=== PATIENT | male | born 1945 | race Caucasian/White ===

== ENCOUNTER 2016-04-19 12:32 | Emergency (ER) | payer MEDICARE ==
[2016-04-19] MEDS ORDERED: Aspirin Low Dose CHEW TAB* 81 MG PO ONE (12:50)
--- NOTE | 2016-04-19 13:22 | RAD ---
INDICATION: Defibrillator firing COMPARISON: None TECHNIQUE: An AP portable view obtained at 1310 hours is submitted. FINDINGS: Bones/Soft Tissues: There are no acute bony findings. There is a cardiac pacemaker/defibrillator Cardiomediastinal: The correct silhouette is mildly prominent. There is no convincing evidence of vascular congestion. Lungs: There are no infiltrates. Pleura: There are no pleural effusions. Other: None IMPRESSION: CARDIAC PACEMAKER/DEFIBRILLATOR. MILDLY ENLARGED CARDIAC SILHOUETTE. NO ACTIVE DISEASE.
[2016-04-19 13:47] LABS: Hematocrit 45 % (42-52); Hemoglobin 15.2 g/dl (14.0-18.0); Mean Corpuscular HGB Conc 33 g/dl (31-36); Mean Corpuscular Hemoglobin 32 pg (27-31); Mean Corpuscular Volume 95 fL (80-94); Mean Platelet Volume 8 um3 (7.4-10.4); Red Cell Distribution Width 13 % (10.5-15)
[2016-04-19 13:58] LABS: Albumin 3.7 g/dL (3.2-5.2); BUN/Creatinine Ratio 11.9 (8-20); Calcium 9.2 mg/dL (8.6-10.3); EGFR African American 67.2 (>60); EGFR Non-African American 52.2 (>60); Globulin 3.1 g/dL (2-4); Magnesium 1.7 mg/dL (1.9-2.7); Potassium 3.9 mmol/L (3.5-5.0); Total Protein 6.8 g/dL (6.4-8.9)
[2016-04-19 14:21] LABS: Troponin I 0.11 ng/mL (<0.04)
[2016-04-19 16:14] VITALS: BP 110/79
--- NOTE | 2016-04-19 19:22 | ED ---
Gee Zavala Adam, scribed for Manoj Alvarado MD on 04/19/16 at 1505 . Palpitations / Dysrhythmia - HPI Summary HPI Summary: Pt is a 70 year old male whose ICD fired 3 times this morning. It first fired at 10:45 as the pt was walking into his house and then it fired 2 more times. He did not feel it coming beforehand and it did not cause him to fall down. Pt has the ICD for A Fib and he states that it has only fired one other time in the past. PMHx includes HTN, DM-II, and CHF. - History of Current Complaint Chief Complaint: EDChestPainROMI Time Seen by Provider: 04/19/16 13:10 Hx Obtained From: Patient Onset/Duration: Sudden Onset, Lasting Hours, Resolved Severity Initially: Moderate Severity Currently: None Character: Irregular - ICD fired 3x Aggravating: Nothing Alleviating: Nothing Associated Signs & Symptoms: Negative - Allergy/Home Medications Allergies/Adverse Reactions: Allergies Allergy/AdvReac Type Severity Reaction Status Date / Time Digoxin Allergy Unknown Verified 04/21/15 14:01 Reaction Details Penicillins Allergy Unknown Verified 04/21/15 14:00 Reaction Details Home Medications: Home Medications Cholecalciferol [Vitamin D] 1,000 unit PO DAILY 04/19/16 [History Confirmed ] Ketoconazole 2 % CREAM (NF) [Nizoral 2% CREAM (NF)] 1 applic TOPICAL BID PRN [History Confirmed 04/19/16] Lactobacillus [Probiotic] 1 cap PO DAILY 04/19/16 [History Confirmed 04/19/16] Lisinopril TAB* [Prinivil TAB*] 20 mg PO DAILY 04/19/16 [History Confirmed 04/19] PMH/Surg Hx/FS Hx/Imm Hx Endocrine/Hematology History: Reports: Hx Diabetes Cardiovascular History: Reports: Hx Congestive Heart Failure, Hx Hypertension, Hx Pacemaker/ICD - Surgical History Surgery Procedure, Year, and Place: PYLORIC STENOSIS Infectious Disease History: No Infectious Disease History: Denies: Traveled Outside the [place] in Last 30 Days - Family History Known Family History: Positive: Unknown - Noncontributory - Social History Occupation: Retired Lives: With Family - Alcohol Use: None Hx Substance Use: No Substance Use Type: Reports: None Smoking Status (MU): Unknown if Ever Smoked Review of Systems Negative: Fever Positive: Palpitations - ICD fired 3x Negative: Shortness Of Breath All Other Systems Reviewed And Are Negative: Yes Physical Exam Triage Information Reviewed: Yes Vital Signs On Initial Exam: Initial Vitals Temp Pulse Resp BP Pulse Ox 98.9 F 68 18 122/86 99 04/19/16 12:33 04/19/16 12:33 04/19/16 12:33 04/19/16 12:33 04/19/16 12:33 Vital Signs Reviewed: Yes Appearance: Positive: Well-Appearing, No Pain Distress Skin: Positive: Warm, Skin Color Reflects Adequate Perfusion, Dry Head/Face: Positive: Normal Head/Face Inspection Eyes: Positive: Normal ENT: Positive: Normal ENT inspection Neck: Positive: Supple, Nontender Respiratory/Lung Sounds: Positive: Clear to Auscultation, Breath Sounds Present Cardiovascular: Positive: RRR Abdomen Description: Positive: Nontender, Soft Bowel Sounds: Positive: Present Musculoskeletal: Positive: Normal Neurological: Positive: Normal Psychiatric: Positive: Normal, Affect/Mood Appropriate - Dennison Coma Scale Coma Scale Total: 15 Diagnostics - Vital Signs Vital Signs Temp Pulse Resp BP Pulse Ox 04/19/16 12:33 98.9 F 68 18 122/86 99 - Laboratory Lab Results: Lab Results 04/19/16 04/19/16 04/19/16 Range/Units 13:30 13:30 13:30 WBC 8.0 (3.5-10.8) 10^3/ul RBC 4.80 (4.0-5.4) 10^6/ul Hgb 15.2 (14.0-18.0) g/dl Hct 45 (42-52) % MCV 95 H (80-94) fL MCH 32 H (27-31) pg MCHC 33 (31-36) g/dl RDW 13 (10.5-15) % Plt Count 166 (150-450) 10^3/ul MPV 8 (7.4-10.4) um3 Neut % (Auto) 72.9 (38-83) % Lymph % (Auto) 11.4 L (25-47) % [place] % (Auto) 8.6 (1-9) % Eos % (Auto) 5.5 (0-6) % Baso % (Auto) 1.6 (0-2) % Absolute Neuts (auto) 5.8 (1.5-7.7) 10^3/ul Absolute Lymphs (auto) 0.9 L (1.0-4.8) 10^3/ul Absolute Monos (auto) 0.7 (0-0.8) 10^3/ul Absolute Eos (auto) 0.4 (0-0.6) 10^3/ul Absolute Basos (auto) 0.1 (0-0.2) 10^3/ul Absolute Nucleated RBC 0 10^3/ul Nucleated RBC % 0 INR (Anticoag Therapy) 1.41 H (0.89-1.11) Sodium 136 (133-145) mmol/L Potassium 3.9 (3.5-5.0) mmol/L Chloride 106 (101-111) mmol/L Carbon Dioxide 25 (22-32) mmol/L Anion Gap 5 (2-11) mmol/L BUN 16 (6-24) mg/dL Creatinine 1.35 H (0.67-1.17) mg/dL Est GFR ( Amer) 67.2 (>60) Est GFR (Non-Af Amer) 52.2 (>60) BUN/Creatinine Ratio 11.9 (8-20) Glucose 128 H (70-100) mg/dL Lactic Acid (0.5-2.0) mmol/L Calcium 9.2 (8.6-10.3) mg/dL Magnesium 1.7 L (1.9-2.7) mg/dL Total Bilirubin 1.00 (0.2-1.0) mg/dL AST 15 (13-39) U/L ALT 10 (7-52) U/L Alkaline Phosphatase 75 (34-104) U/L Troponin I 0.11 H* (<0.04) ng/mL Total Protein 6.8 (6.4-8.9) g/dL Albumin 3.7 (3.2-5.2) g/dL Globulin 3.1 (2-4) g/dL Albumin/Globulin Ratio 1.2 (1-3) 04/19/ Range/Units 13:30 WBC (3.5-10.8) 10^3/ul RBC (4.0-5.4) 10^6/ul Hgb (14.0-18.0) g/dl Hct (42-52) % MCV (80-94) fL MCH (27-31) pg MCHC (31-36) g/dl RDW (10.5-15) % Plt Count (150-450) 10^3/ul MPV (7.4-10.4) um3 Neut % (Auto) (38-83) % Lymph % (Auto) (25-47) % [place] % (Auto) (1-9) % Eos % (Auto) (0-6) % Baso % (Auto) (0-2) % Absolute Neuts (auto) (1.5-7.7) 10^3/ul Absolute Lymphs (auto) (1.0-4.8) 10^3/ul Absolute Monos (auto) (0-0.8) 10^3/ul Absolute Eos (auto) (0-0.6) 10^3/ul Absolute Basos (auto) (0-0.2) 10^3/ul Absolute Nucleated RBC 10^3/ul Nucleated RBC % INR (Anticoag Therapy) (0.89-1.11) Sodium (133-145) mmol/L Potassium (3.5-5.0) mmol/L Chloride (101-111) mmol/L Carbon Dioxide (22-32) mmol/L Anion Gap (2-11) mmol/L BUN (6-24) mg/dL Creatinine (0.67-1.17) mg/dL Est GFR ( Amer) (>60) Est GFR (Non-Af Amer) (>60) BUN/Creatinine Ratio (8-20) Glucose (70-100) mg/dL Lactic Acid 1.1 (0.5-2.0) mmol/L Calcium (8.6-10.3) mg/dL Magnesium (1.9-2.7) mg/dL Total Bilirubin (0.2-1.0) mg/dL AST (13-39) U/L ALT (7-52) U/L Alkaline Phosphatase (34-104) U/L Troponin I (<0.04) ng/mL Total Protein (6.4-8.9) g/dL Albumin (3.2-5.2) g/dL Globulin (2-4) g/dL Albumin/Globulin Ratio (1-3) Result Diagrams: 04/19/16 13:30 04/19/16 13:30 Lab Statement: Any lab studies that have been ordered have been reviewed, and results considered in the medical decision making process. - Radiology CXR Radiology Interpretation Completed By: Radiologist - IMPRESSION: CARDIAC PACEMAKER/DEFIBRILLATOR. MILDLY ENLARGED CARDIAC SILHOUETTE. NO ACTIVE DISEASE. - EKG 12:53 Cardiac Rate: NL - 64 BPM EKG Rhythm: Sinus Rhythm - Additional Comments Diagnostic Additional Comments: Troponin I - 0.11 Course/Dx - Course Course Of Treatment: Mr. Burger presented with his ICD having fired 3 times today. His labs were OK and the ICD was interrogated and some of the settings changed. Dr. Pringle was involved in the decision making. - Diagnoses Provider Diagnoses: A-fib Discharge - Discharge Plan Condition: Stable Disposition: HOME Patient Education Materials: Atrial Fibrillation (ED) Referrals: Bob Jessica MD [Medical Doctor] - Additional Instructions: Follow up with Dr. Jessica. The documentation as recorded by the Gee herron Adam accurately reflects the service I personally performed and the decisions made by me, Manoj Alvarado MD.
--- NOTE | 2016-06-07 10:58 | ED ---
Urbano Zavala Matthew, scribed for Kaylee Maravilla MD on 04/19/16 at 1255 . Progress - Progress Note Progress Note: A 70 y/o male presents to the ED after his defibrillator has gone off 3 times today. He went outside to feed the birds and after walking up a set of stairs his defibrillator fired for the first time. Since then it has gone off 2 additional [address] He [address] Dr[address] Jessica who recommend he presented to the ED. He has a medtronic defibrillator. EKG being done. The patient was moved to room 7 to be seen by a provider. Course/Dx - Diagnoses Provider Diagnoses: A-fib The documentation as recorded by the scribeUrbano Matthew accurately reflects the service I personally performed and the decisions made by me, Kaylee Maravilla MD.
== END 2016-04-19 16:14 | disposition home or self-care (01) ==
LOC: ED 12:32
DX: I48.91 Unspecified atrial fibrillation (principal); Z95.810 Presence of automatic (implantable) cardiac defibrillator; I10 Essential (primary) hypertension; E11.8 Type 2 diabetes mellitus with unspecified complications; I50.9 Heart failure, unspecified; Z88.0 Allergy status to penicillin
CPT/HCPCS: 36415; 71010; 80053; 83605; 83735; 84484; 85025; 85610; 93005; 99283

== ENCOUNTER 2016-09-22 18:52 | Observation (INO) | payer MEDICARE ==
[2016-09-22 20:08] LABS: Hematocrit 48 % (42-52); Hemoglobin 15.9 g/dl (14.0-18.0); Mean Corpuscular HGB Conc 33 g/dl (31-36); Mean Corpuscular Hemoglobin 32 pg (27-31); Mean Corpuscular Volume 95 fL (80-94); Mean Platelet Volume 8 um3 (7.4-10.4); Red Blood Count 5.02 10^6/ul (4.0-5.4); Red Cell Distribution Width 14 % (10.5-15)
[2016-09-22] MEDS ORDERED: Ondansetron INJ* 2 MG/ML VIAL IV PRN (20:13)
[2016-09-22] MEDS ORDERED: NS 0.9% 1000 ML* 1,000 ML IV SCH (20:15)
--- NOTE | 2016-09-22 20:16 | ED ---
Joshua Zavala Claudia, scribed for Sky Cowart MD on 09/22/16 at 1948 . Neurological HPI - HPI Summary HPI Summary: 70 year old male presents to [facility] ED with chief complaint of weakness and ARREAGA. Pt is referred from Dr. Rojas's office today after receiving MRI results displaying a bleed. According to pt Dr. Rojas has spoken to a Neurosurgeon at [facility] today. IMPRESSION: THERE IS A INTRAPARENCHYMAL HEMATOMA IN THE LEFT FRONTAL LOBE JUST SUPERIOR TO THE LEFT LATERAL VENTRICLE MEASURING 19 X 14 MM. NO MIDLINE SHIFT IS NOTED. NO DEFINITE INTRAVENTRICULAR HEMORRHAGE IS NOTED CURRENTLY. Pt notes sudden onset of Sx about 1 week ago. Pt denies any progression of Sx and notes that have remained about the same. Pt states difficulty ambulating since onset of Sx. Pt family note that the pt was golfing the day before Sx occurred. Pt denies any recent mechanical falls. Pt alsop notes that she has been taking pyridoxine for years due to Dx of AFIB, family notes recent cardiac oblation to correct his AFIB. - History of Current Complaint Chief Complaint: EDGeneral Stated Complaint: NEEDS TO GET OFF MEDS Time Seen by Provider: 09/22/16 19:37 Hx Obtained From: Patient Onset/Duration: Sudden Onset, Started weeks ago Pain Intensity: 2 Pain Scale Used: 0-10 Numeric Character: Weak, Other: - ARREAGA Associated Signs and Symptoms: Positive: Headache, Weakness - Allergy/Home Medications Allergies/Adverse Reactions: Allergies Allergy/AdvReac Type Severity Reaction Status Date / Time Digoxin Allergy Unknown Verified 04/21/15 14:01 Reaction Details Penicillins Allergy Unknown Verified 04/21/15 14:00 Reaction Details Home Medications: Home Medications Eplerenone 25 mg PO DAILY 09/22/16 [History Confirmed 09/22/16] PMH/Surg Hx/FS Hx/Imm Hx Previously Healthy: Yes Endocrine/Hematology History: Reports: Hx Diabetes Cardiovascular History: Reports: Hx Congestive Heart Failure, Hx Hypertension, Hx Pacemaker/ICD - Surgical History Surgery Procedure, Year, and Place: PYLORIC STENOSIS Infectious Disease History: Denies: Traveled Outside the [place] in Last 30 Days - Family History Known Family History: Positive: Unknown - Noncontributory - Social History Occupation: Retired Lives: With Family Alcohol Use: None Hx Substance Use: No Substance Use Type: Reports: None Smoking Status (MU): Unknown if Ever Smoked Review of Systems Constitutional: Negative Negative: Fever Eyes: Negative ENT: Negative Cardiovascular: Negative Respiratory: Negative Gastrointestinal: Negative Genitourinary: Negative Musculoskeletal: Negative Skin: Negative Positive: Headache, Weakness Psychological: Normal All Other Systems Reviewed And Are Negative: Yes Physical Exam Triage Information Reviewed: Yes Vital Signs On Initial Exam: Initial Vitals Temp Pulse Resp BP Pulse Ox 98.6 F 67 18 137/100 96 09/22/16 19:20 09/22/16 19:20 09/22/16 19:20 09/22/16 19:20 09/22/16 19:20 Vital Signs Reviewed: Yes Appearance: Positive: Well-Appearing, No Pain Distress Skin: Positive: Warm Head/Face: Positive: Normal Head/Face Inspection Eyes: Positive: EOMI, JESIKA ENT: Positive: Hearing grossly normal Neck: Positive: Nontender Respiratory/Lung Sounds: Positive: Breath Sounds Present Cardiovascular: Positive: RRR Abdomen Description: Positive: Nontender, Soft Bowel Sounds: Positive: Present Musculoskeletal: Positive: Normal, Strength/ROM Intact Neurological: Positive: Alert, Oriented to Person Place, Time Diagnostics - Vital Signs Vital Signs Temp Pulse Resp BP Pulse Ox 09/22/16 19:20 98.6 F 67 18 137/100 96 - Laboratory Lab Results: Lab Results 09/22/16 Range/Units 19:59 WBC 9.0 (3.5-10.8) 10^3/ul RBC 5.02 (4.0-5.4) 10^6/ul Hgb 15.9 (14.0-18.0) g/dl Hct 48 (42-52) % MCV 95 H (80-94) fL MCH 32 H (27-31) pg MCHC 33 (31-36) g/dl RDW 14 (10.5-15) % Plt Count 181 (150-450) 10^3/ul MPV 8 (7.4-10.4) um3 Neut % (Auto) 59.1 (38-83) % Lymph % (Auto) 18.7 L (25-47) % [place] % (Auto) 11.0 H (1-9) % Eos % (Auto) 9.2 H (0-6) % Baso % (Auto) 2.0 (0-2) % Absolute Neuts (auto) 5.3 (1.5-7.7) 10^3/ul Absolute Lymphs (auto) 1.7 (1.0-4.8) 10^3/ul Absolute Monos (auto) 1.0 H (0-0.8) 10^3/ul Absolute Eos (auto) 0.8 H (0-0.6) 10^3/ul Absolute Basos (auto) 0.2 (0-0.2) 10^3/ul Absolute Nucleated RBC 0 10^3/ul Nucleated RBC % 0 Result Diagrams: 09/22/16 19:59 09/22/16 19:59 Lab Statement: Any lab studies that have been ordered have been reviewed, and results considered in the medical decision making process. - EKG 2000 Cardiac Rate: NL EKG Rhythm: Sinus Rhythm - 60 beats/min occassional Atrial Premature Complex NIH Scale - NIH Scale Level of Consciousness: Alert/Keenly Responsive Ask Patient the Month and His/Her Age: Both Correct Ask Pt to Open/Close Eyes and Boat Hoist Operator Helper/Release Non-Paretic Hand: Both Correctly Best Gaze (Only Horizontal Eye Movement): Normal Visual Field Testing: No Visual Loss Facial Paresis-Pt to Smile & Close Eyes or Grimace Symmetry: Normal/Symmetrical Motor Function - Right Arm: No Drift-Holds 10 Seconds Motor Function - Left Arm: No Drift-Holds 10 Seconds Motor Function - Right Leg: No Drift-Holds 10 Seconds Motor Function - Left Leg: No Drift-Holds 10 Seconds Limb Ataxia-Must be out of Proportion to Weakness Present: Absent Sensory (Use Pinprick to Test Arms/Legs/Trunk/Face): Normal Best Language (Describe Picture, Name Items): No Aphasia Dysarthria (Read Several Words): Normal Extinction and Inattention: No Abnormality Total Score: 0 Re-Evaluation - Re-Evaluation First Eval Comment: case d/w dr galeano nsg, d/w hospitalist Course/Dx - Course Assessment/Plan: MDM: 70 year old male presents to [facility] ED after a positive Brain CT. Pt is referred to ED from Dr. Rojas. I have discussed patient care with Dr. Galeano and Dr. Le. Mimi Gonzalez will admit the pt. - Diagnoses Provider Diagnoses: Cerebral hemorrhage - Physician Notifications Discussed Care Of Patient With: Dr. Galeano and Dr. Le whom will admit to [facility] Time Discussed With Above Provider: 19:55 Discharge - Discharge Plan Condition: Fair Disposition: ADMITTED TO [facility] The documentation as recorded by the Joshua herron Claudia accurately reflects the service I personally performed and the decisions made by me, Sky Cowart MD.
[2016-09-22 20:23] LABS: Albumin 3.9 g/dL (3.2-5.2); BUN/Creatinine Ratio 13.2 (8-20); Calcium 9.4 mg/dL (8.6-10.3); EGFR African American 70.8 (>60); EGFR Non-African American 55.1 (>60); Globulin 3.4 g/dL (2-4); Potassium 3.8 mmol/L (3.5-5.0); Total Bilirubin 0.7 mg/dL (0.2-1.0); Total Protein 7.3 g/dL (6.4-8.9)
--- NOTE | 2016-09-22 20:26 | HP ---
H&P (Free Text) History and Physical: PCP: Debbie Rojas MD Date/Time of Evaluation: 09/22/2016 193 CC: intercranial hemorrhage HPI: Mr Burger is a 70YO male HX AFIB on dabigatran who is quite a poor, indistinct historian. He has difficulty relating symptom onset, but ultimately settles on 7-10days ago noticing his legs and body to feel heavy with tender feet, increased urinary frequency, gait instability, mental fogginess, & increased frequency of mild 2/10 dull diffuse headache. He denies visual changes , syncope, cough, congestion, chest pain, SOB, N/V, change in bowels, open wound , recent fall/injury, or other issues. He saw his PCP who ordered labs and a CT brain revealing a L interparenchymal cerebral hemorrhage for which referral to ED was made. At this time, Mr Burger is sitting up in his ED bed appearing comfortable and without distress. He denies focal W/N/T, change in speech/ swallow, vision, or other problem. PMedHx AFIB on dabigatran HX non-ischemic cardiomyopathy, resolved HTN HLD hypothyroidism GERD gout erectile dysfunction Ambulatory Orders Nursing to reconcile. Colchicine* [Colcrys*] 0.6 mg PO DAILY PRN 04/21/15 Dabigatran CAP(NF) [Pradaxa CAP(NF)] 150 mg PO BID 04/21/15 Levothyroxine TAB* [Synthroid TAB*] 100 mcg PO DAILY 04/21/15 Ranitidine TAB (NF) [Zantac TAB (NF)] 150 mg PO BID 04/21/15 Sildenafil Citrate [Viagra] 50 - 100 mg PO BEDTIME PRN 04/21/15 Simvastatin (NF) [Zocor (NF)] 80 mg PO BEDTIME 04/21/15 Sotalol TAB* [Betapace TAB*] 160 mg PO DAILY 04/21/15 Spironolactone TAB* [Aldactone TAB*] 25 mg PO DAILY 04/21/15 Cholecalciferol [Vitamin D] 1,000 unit PO DAILY 04/19/16 Ketoconazole 2 % CREAM (NF) [Nizoral 2% CREAM (NF)] 1 applic TOPICAL BID PRN Lactobacillus [Probiotic] 1 cap PO DAILY 04/19/16 Lisinopril TAB* [Prinivil TAB*] 20 mg PO DAILY 04/19/16 Allergies Digoxin Allergy (Verified 04/21/15 14:01) Unknown Reaction Details Penicillins Allergy (Verified 04/21/15 14:00) Unknown Reaction Details PSurgHx AICD placement & battery change pinning R knee FX recent cardiac ablation SocHx: quit smoking 30years ago, no significant alcohol history, denies recreational drugs; lives with his ; retired from work in a [employer] plant; full code status FamHx: positive for HTN, HLD ROS: as above, otherwise reviewed and all were negative Constitutional: NAD, normally developed, well-nourished elderly white male vitals: Vital Signs Temp 37.0 C 09/22/16 19:20 Pulse 67 09/22/16 19:20 Resp 18 09/22/16 19:20 BP 137/100 09/22/16 19:20 Pulse Ox 96 09/22/16 19:20 HEENM: atraumatic; sclera/conjunctiva: non-icteric/clear; hearing: clinically intact; oropharynx: clear, mucosa moist Neck: soft tissue: non-tender; thyroid: normal Pulmonary: clear to auscultation bilaterally, good aeration, no accessory muscle use CV: RR/RR, normal S1S2, no carotid bruit, no jugular venous distention, 2+ B DP/ PT, no edema Abdominal: soft, non-distended, non-tender, no rebound/guarding/rigidity, normoactive bowel sounds, no hepatosplenomegaly or masses, no costovertebral angle tenderness Musculoskeletal: general: grossly intact, no overt deformity or tenderness Integumental: normal appearance and texture of exposed skin Neurological cranial nerves III/IV/: symmetric light reflex, EOMI/PERRLA V: intact facial sensation & mastication VII: intact facial symmetry & eye clench VIII: hearing clinically intact IX/X: symmetric palatal motion, no dysarthria XII: midline tongue protrusion, normal voice articulation motor LUE: 4+/5 proximally, distally, & fast food crew member strength RUE: 4+/5 proximally, distally, & fast food crew member strength LLE: 4+/5 proximally & distally RLE: 4+/5 proximally & distally coordination finger/nose: heal/toro: dysdiadochokinesia: sensory crude touch: intact globally Psychiatric orientation: AA&O to PPS affect: calm mood: cooperative eye contact: good content: reliable memory: intact responses: lacking in details; uncertain if he has AFIB, etc insight: fair Testing: Lab Results 09/22/16 09/22/16 Range/Units 19:59 19:59 WBC 9.0 (3.5-10.8) 10^3/ul RBC 5.02 (4.0-5.4) 10^6/ul Hgb 15.9 (14.0-18.0) g/dl Hct 48 (42-52) % MCV 95 H (80-94) fL MCH 32 H (27-31) pg MCHC 33 (31-36) g/dl RDW 14 (10.5-15) % Plt Count 181 (150-450) 10^3/ul MPV 8 (7.4-10.4) um3 Neut % (Auto) 59.1 (38-83) % Lymph % (Auto) 18.7 L (25-47) % [place] % (Auto) 11.0 H (1-9) % Eos % (Auto) 9.2 H (0-6) % Baso % (Auto) 2.0 (0-2) % Absolute Neuts (auto) 5.3 (1.5-7.7) 10^3/ul Absolute Lymphs (auto) 1.7 (1.0-4.8) 10^3/ul Absolute Monos (auto) 1.0 H (0-0.8) 10^3/ul Absolute Eos (auto) 0.8 H (0-0.6) 10^3/ul Absolute Basos (auto) 0.2 (0-0.2) 10^3/ul Absolute Nucleated RBC 0 10^3/ul Nucleated RBC % 0 INR (Anticoag Therapy) 1.15 H (0.89-1.11) ECG, personally reviewed: NSR rate 60, no ischemia, occasional PACs CT brain WO (09/22/2016 outpatient), personally reviewed: IMPRESSION: THERE IS A INTRAPARENCHYMAL HEMATOMA IN THE LEFT FRONTAL LOBE JUST SUPERIOR TO THE LEFT LATERAL VENTRICLE MEASURING 19 X 14 MM. NO MIDLINE SHIFT IS NOTED. NO DEFINITE INTRAVENTRICULAR HEMORRHAGE IS NOTED CURRENTLY. AGE RELATED ATROPHY. Impression: 70M presenting with spontaneous L interparechemal cranial hemorrhage on dabigatron for AFIB DIAGNOSIS & PLAN Primary L interparechemal cranial hemorrhage on dabigatron for AFIB : minimal deficit : D/C dabigatran : ICU monitoring : neurochecks : no indication for reversal of dabigatran 2nd duration of symptom stability : maintain systolic <130 : PT/OT evaluations : NPO until bedside swallow passed : supplemental oxygen : case discussed with Dr Joey Galeano, neurosurgery, will follow, agrees with above plan : supportive care AFIB : no longer a candidate for anticoagulation 2nd above : currently NSR s/p ablation : rate/rhythm control Secondary AFIB : D/C dabigatran as above : continue sotalol & eplerenone HX non-ischemic cardiomyopathy, resolved : no acute issues HTN : continue lisinopril HLD : continue simvastatin hypothyroidism : continue levothyroxine GERD : continue ranitidine gout : no acute issues Admission Rational: observation for non-traumatic intracranial hemorrhage on dabigatran DVTp: SCDs, no anticoagulation 2nd above Code Status: full HCP:
[2016-09-22] MEDS ORDERED: Melatonin (NF) 3 MG TAB PO PRN (21:00)
[2016-09-22] MEDS ORDERED: hydrALAZINE IV* 20 MG/ML VIAL IV PRN (21:17)
[2016-09-22] MEDS: Atorvastatin* 40 MG TAB PO SCH (22:12)
[2016-09-22] MEDS: Docusate CAP* 100 MG PO SCH (22:12)
--- NOTE | 2016-09-22 22:26 | CONSULT ---
Neurological HPI - HPI Summary HPI Summary: 70 year old male presents to [facility] with chief complaint of headache and difficulty of walking for 10 days. Pt notes sudden onset of Sx about 1 week to 10 days ago. ARREAGA is rated about 2-7 in a scale of 10, located on the top of head , Pt denies any progression of Sx and notes that have remained about the same. Pt states difficulty ambulating since onset of Sx. Pt family note that the pt was golfing the day before Sx occurred. Pt denies any recent mechanical falls. Pt also notes that she has been taking Pradaxa for years due to Dx of AFIB, family notes recent cardiac oblation to correct his AFIB. Pt is referred from Dr. Rojas's office today after receiving CT results displaying a bleed. CT IMPRESSION: THERE IS A INTRAPARENCHYMAL HEMATOMA IN THE LEFT FRONTAL LOBE JUST SUPERIOR TO THE LEFT LATERAL VENTRICLE MEASURING 19 X 14 MM. NO MIDLINE SHIFT IS NOTED. NO DEFINITE INTRAVENTRICULAR HEMORRHAGE IS NOTED CURRENTLY. - History of Current Complaint Hx Obtained From: Patient Onset/Duration: Sudden Onset, Started weeks ago Pain Intensity: 2 Pain Scale Used: 0-10 Numeric Character: Weak, Other: - ARREAGA Associated Signs and Symptoms: Positive: Headache, Weakness - Additional Pertinent History Oxygen Devices Used Prior to Hospitalization: None - Allergy/Home Medications Allergies/Adverse Reactions: Allergies Allergy/AdvReac Type Severity Reaction Status Date / Time Digoxin Allergy Unknown Verified 04/21/15 14:01 Reaction Details Penicillins Allergy Unknown Verified 04/21/15 14:00 Reaction Details Home Medications: Home Medications Eplerenone 25 mg PO DAILY 09/22/16 [History Confirmed 09/22/16] Home Medications: Home Medications Medication Instructions Recorded Confirmed Type Dabigatran CAP(NF) [Pradaxa 150 mg PO BID 04/21/15 09/22/16 History CAP(NF)] Levothyroxine TAB* [Synthroid TAB*] 100 mcg PO DAILY 04/21/15 09/22/16 History Ranitidine TAB (NF) [Zantac TAB 150 mg PO BID 04/21/15 09/22/16 History (NF)] Simvastatin (NF) [Zocor (NF)] 80 mg PO BEDTIME 04/21/15 09/22/16 History Sotalol TAB* [Betapace TAB*] 120 mg PO DAILY 04/21/15 09/22/16 History Lactobacillus [Probiotic] 1 cap PO DAILY 04/19/16 09/22/16 History Lisinopril TAB* [Prinivil TAB*] 40 mg PO DAILY 04/19/16 09/22/16 History Eplerenone 25 mg PO DAILY 09/22/16 09/22/16 History Allergies: Allergies Allergy/AdvReac Type Severity Reaction Status Date / Time Digoxin Allergy Unknown Verified 04/21/15 14:01 Reaction Details Penicillins Allergy Unknown Verified 04/21/15 14:00 Reaction Details Vital Signs Vital Signs: Vital Signs 09/22/16 09/22/16 09/22/16 20:28 20:30 21:00 Temperature 99.1 F Pulse Rate 63 58 60 Respiratory 18 Rate Blood Pressure 127/87 127/87 148/93 (mmHg) O2 Sat by Pulse 98 95 97 Oximetry 09/22/16 09/22/16 09/22/16 21:23 21:26 21:30 Temperature 99.1 F Pulse Rate 62 62 60 Respiratory 13 13 15 Rate Blood Pressure 136/88 136/88 144/90 (mmHg) O2 Sat by Pulse 98 99 98 Oximetry 09/22/16 09/22/16 21:45 22:00 Temperature Pulse Rate 59 60 Respiratory 18 19 Rate Blood Pressure 136/90 140/87 (mmHg) O2 Sat by Pulse 96 96 Oximetry Assessment and Plan - Plan Surgical Plan of Care: Transfer to ICU Temp Pulse Resp BP Pulse Ox 99.1 F 60 18 140/87 96 09/22/16 21:23 09/22/16 22:00 09/22/16 22:00 09/22/16 22:00 09/22/16 22:00 General Appearance: Well appearing, Normal development HEENT: Normocephalic, atraumatic, ears and nose without masses or lesions Neck: Symmetric without masses or tracheal deviation Chest: Normal respiratory effort Cardiovascular: Good color, warmth and capillary refill in extremities Skin: No visible rashes, lesions or ulcers Neurological/Psychiatric: Good fine motor coordination, Sensation intact to light touch distally, Cranial nerves II-IX grossly intact, Appropriate judgement and insight, Oriented to time, place, and person, Normal mood and affect Lab Results - Lab Results Lab Results: Abnormal Lab Results 09/22/16 09/22/16 09/22/16 19:59 19:59 19:59 WBC 9.0 RBC 5.02 Hgb 15.9 Hct 48 MCV 95 H MCH 32 H MCHC 33 RDW 14 Plt Count 181 MPV 8 Neut % (Auto) 59.1 Lymph % (Auto) 18.7 L [place] % (Auto) 11.0 H Eos % (Auto) 9.2 H Baso % (Auto) 2.0 Absolute Neuts (auto) 5.3 Absolute Lymphs (auto) 1.7 Absolute Monos (auto) 1.0 H Absolute Eos (auto) 0.8 H Absolute Basos (auto) 0.2 Absolute Nucleated RBC 0 Nucleated RBC % 0 INR (Anticoag Therapy) 1.15 H Sodium Potassium Chloride Carbon Dioxide Anion Gap BUN Creatinine Est GFR ( Amer) Est GFR (Non-Af Amer) BUN/Creatinine Ratio Glucose Lactic Acid 0.8 Calcium Total Bilirubin AST ALT Alkaline Phosphatase Total Protein Albumin Globulin Albumin/Globulin Ratio 09/22/16 19:59 WBC RBC Hgb Hct MCV MCH MCHC RDW Plt Count MPV Neut % (Auto) Lymph % (Auto) [place] % (Auto) Eos % (Auto) Baso % (Auto) Absolute Neuts (auto) Absolute Lymphs (auto) Absolute Monos (auto) Absolute Eos (auto) Absolute Basos (auto) Absolute Nucleated RBC Nucleated RBC % INR (Anticoag Therapy) Sodium 136 Potassium 3.8 Chloride 103 Carbon Dioxide 25 Anion Gap 8 BUN 17 Creatinine 1.29 H Est GFR ( Amer) 70.8 Est GFR (Non-Af Amer) 55.1 BUN/Creatinine Ratio 13.2 Glucose 114 H Lactic Acid Calcium 9.4 Total Bilirubin 0.70 AST 22 ALT 15 Alkaline Phosphatase 77 Total Protein 7.3 Albumin 3.9 Globulin 3.4 Albumin/Globulin Ratio 1.1 Results/Investigations Major Jaundice Risk Factors: None Minor Jaundice Risk Factors: None Radiology Results: CT showed left frontal area close to ventricle area has 19x 14 mm ICH without mass effect or midline shift, no IVH Impression and Recommendations - Impression and Recommendations Impression and Recommendations: 70M, on Pradexa for A Fib, found Headache and difficulty to walk for 10 days, no other complaints or deficits,CT showed left frontal area close to ventricle area has 19x 14 mm ICH without mass effect or midline shift, no IVH Plan: ICU admission with neuro check q1h Stop Pradexa and reverse it if possible Control SBP less 140 mmhg Keppra 750 mg bid avoid fluid overload CT scan tomorrow Discussed with patient and primary team, please call for any questions
[2016-09-23] MEDS: Omeprazole CAP* 20 MG PO SCH (05:55)
[2016-09-23] MEDS: Levothyroxine TAB* 100 MCG TAB PO SCH (05:55)
[2016-09-23 06:04] LABS: Hematocrit 44 % (42-52); Hemoglobin 14.7 g/dl (14.0-18.0); Mean Corpuscular HGB Conc 33 g/dl (31-36); Mean Corpuscular Hemoglobin 32 pg (27-31); Mean Corpuscular Volume 95 fL (80-94); Mean Platelet Volume 8 um3 (7.4-10.4); Red Blood Count 4.68 10^6/ul (4.0-5.4); Red Cell Distribution Width 14 % (10.5-15); White Blood Count 7.7 10^3/ul (3.5-10.8)
[2016-09-23 06:21] LABS: BUN/Creatinine Ratio 12.2 (8-20); EGFR African American 80.9 (>60); EGFR Non-African American 62.9 (>60); Potassium 3.8 mmol/L (3.5-5.0)
[2016-09-23] MEDS: Acetaminophen TAB* 325 MG PO PRN ×3 (06:47→18:46)
[2016-09-23] MEDS ORDERED: IDARUCIZUMAB* 2.5 GM/50 ML VIAL IV ONE (07:47)
--- NOTE | 2016-09-23 07:52 | PN ---
Subjective - Subjective Reason for Note: Progress Note History: I diagnosed this intracranial hemorrhage yesterday and we admitted him for observation as he was anticoagulated with dabigatran. He states he is hungry this morning and has a slight headache. Otherwise, he feels no new symptoms or deficits. He has no nausea, vomiting. His vision is unchanged. He has no focal weakness or loss of sensation. He states he is having no problems with word finding/expressing himself. Active Problems: Active Problems Anticoagulant adverse reaction (Acute) T45.515A Headache (Acute) R51 Left-sided intracerebral hemorrhage (Acute) I61.2 Urinary frequency (Acute) R35.0 BPH (benign prostatic hyperplasia) (Chronic) N40.0 Cardiomyopathy (Chronic) I42.9 Chronic kidney disease, stage 3 (Chronic) N18.3 DNR (do not resuscitate) (Chronic) Diabetic retinopathy (Chronic) E11.319 Essential hypertension (Chronic) I10 GERD (gastroesophageal reflux disease) (Chronic) K21.9 History of atrial fibrillation (Chronic) Z86.79 History of cardiac radiofrequency ablation (Chronic) Z98.890 History of gout (Chronic) Z87.39 Hypercholesterolemia (Chronic) E78.00 ICD (implantable cardioverter-defibrillator) in place (Chronic) Z95.810 Obesity (BMI 30.0-34.9) (Chronic) E66.9 Primary hypothyroidism (Chronic) E03.9 Type 2 diabetes mellitus (Chronic) Current Medications: Current Medications Acetaminophen (Tylenol Tab*) 650 mg PO Q6H PRN PRN Reason: FEVER/PAIN Last Admin: 09/23/16 06:47 Dose: 650 mg Atorvastatin Calcium (Lipitor*) 40 mg PO BEDTIME RIZWAN Last Admin: 09/22/16 22:12 Dose: 40 mg Docusate Sodium (Colace Cap*) 200 mg PO BID RIZWAN Last Admin: 09/22/16 22:12 Dose: 200 mg Eplerenone (Inspra (Nf)) 25 mg PO DAILY [facility] Famotidine (Pepcid Tab*) 20 mg PO BID [facility] PRN Reason: Protocol Hydralazine HCl (Apresoline Iv*) 10 mg IV Q4H PRN PRN Reason: systolic >135 Sodium Chloride (Ns 0.9% 1000 Ml*) 1,000 mls @ 75 mls/hr IV PER RATE [facility] Last Admin: 09/22/16 22:02 Dose: 75 mls/hr Levetiracetam (Keppra Tab*) 750 mg PO BID [facility] Levothyroxine Sodium (Synthroid Tab*) 100 mcg PO DAILY@0600 [facility] Last Admin: 09/23/16 05:55 Dose: 100 mcg Lisinopril (Prinivil Tab*) 40 mg PO DAILY [facility] Melatonin (Melatonin (Nf)) 3 mg PO BEDTIME PRN; Protocol PRN Reason: Sleep Omeprazole (Prilosec Cap*) 20 mg PO DAILY@0600 [facility] Last Admin: 09/23/16 05:55 Dose: 20 mg Ondansetron HCl (Zofran Inj*) 4 mg IV Q6H PRN PRN Reason: NAUSEA Sotalol HCl (Betapace Tab*) 120 mg PO DAILY [facility] Home Medications: Home Medications Medication Instructions Recorded Confirmed Type Dabigatran CAP(NF) [Pradaxa 150 mg PO BID 04/21/15 09/22/16 History CAP(NF)] Levothyroxine TAB* [Synthroid TAB*] 100 mcg PO DAILY 04/21/15 09/22/16 History Ranitidine TAB (NF) [Zantac TAB 150 mg PO BID 04/21/15 09/22/16 History (NF)] Simvastatin (NF) [Zocor (NF)] 80 mg PO BEDTIME 04/21/15 09/22/16 History Sotalol TAB* [Betapace TAB*] 120 mg PO DAILY 04/21/15 09/22/16 History Lactobacillus [Probiotic] 1 cap PO DAILY 04/19/16 09/22/16 History Lisinopril TAB* [Prinivil TAB*] 40 mg PO DAILY 04/19/16 09/22/16 History Eplerenone 25 mg PO DAILY 09/22/16 09/22/16 History Allergies: Allergies Allergy/AdvReac Type Severity Reaction Status Date / Time Digoxin Allergy Unknown Verified 04/21/15 14:01 Reaction Details Penicillins Allergy Unknown Verified 04/21/15 14:00 Reaction Details Objective - Vital Signs Vital Signs: Vital Signs 09/22/16 09/22/16 09/22/16 20:28 20:30 21:00 Temperature 99.1 F Pulse Rate 63 58 60 Respiratory 18 Rate Blood Pressure 127/87 127/87 148/93 (mmHg) O2 Sat by Pulse 98 95 97 Oximetry 09/22/16 09/22/16 09/22/16 21:23 21:26 21:30 Temperature 99.1 F Pulse Rate 62 62 60 Respiratory 13 13 15 Rate Blood Pressure 136/88 136/88 144/90 (mmHg) O2 Sat by Pulse 98 99 98 Oximetry 09/22/16 09/22/16 09/22/16 21:45 22:00 22:15 Temperature Pulse Rate 59 60 57 Respiratory 18 19 16 Rate Blood Pressure 136/90 140/87 145/88 (mmHg) O2 Sat by Pulse 96 96 97 Oximetry 09/22/16 09/22/16 09/22/16 22:30 22:45 23:00 Temperature Pulse Rate 59 60 60 Respiratory 16 18 18 Rate Blood Pressure 131/89 129/84 127/78 (mmHg) O2 Sat by Pulse 98 98 97 Oximetry 09/22/16 09/22/16 09/22/16 23:15 23:30 23:45 Temperature Pulse Rate 63 62 68 Respiratory 15 15 15 Rate Blood Pressure 128/80 130/78 132/78 (mmHg) O2 Sat by Pulse 98 96 97 Oximetry 09/23/16 09/23/16 09/23/16 00:00 00:01 00:07 Temperature 98.6 F Pulse Rate 64 64 49 Respiratory 16 17 19 Rate Blood Pressure 153/85 (mmHg) O2 Sat by Pulse 96 97 95 Oximetry 09/23/16 09/23/16 09/23/16 00:30 00:33 01:00 Temperature Pulse Rate 59 60 Respiratory 15 15 Rate Blood Pressure 126/81 111/74 (mmHg) O2 Sat by Pulse 96 95 Oximetry 09/23/16 09/23/16 09/23/16 01:30 02:00 02:30 Temperature Pulse Rate 58 61 60 Respiratory 15 13 15 Rate Blood Pressure 126/66 119/76 132/65 (mmHg) O2 Sat by Pulse 95 96 95 Oximetry 09/23/16 09/23/16 09/23/16 03:00 03:16 03:30 Temperature Pulse Rate 59 59 59 Respiratory 10 13 17 Rate Blood Pressure 130/77 122/68 (mmHg) O2 Sat by Pulse 96 96 94 Oximetry 09/23/16 09/23/16 09/23/16 03:40 04:00 04:04 Temperature 98.4 F Pulse Rate 60 64 Respiratory 16 17 Rate Blood Pressure 119/72 (mmHg) O2 Sat by Pulse 94 96 Oximetry 09/23/16 09/23/16 09/23/16 04:30 04:58 05:00 Temperature Pulse Rate 59 59 Respiratory 15 15 16 Rate Blood Pressure 103/60 101/65 (mmHg) O2 Sat by Pulse 93 94 Oximetry 09/23/16 09/23/16 09/23/16 05:30 05:56 06:00 Temperature Pulse Rate 59 61 Respiratory 16 15 16 Rate Blood Pressure 111/62 (mmHg) O2 Sat by Pulse 94 97 Oximetry 09/23/16 09/23/16 09/23/16 06:01 06:05 06:30 Temperature Pulse Rate 61 64 Respiratory 19 16 15 Rate Blood Pressure 133/86 140/83 (mmHg) O2 Sat by Pulse 98 96 Oximetry 09/23/16 09/23/16 09/23/16 07:00 07:19 07:20 Temperature Pulse Rate 63 60 Respiratory 17 13 16 Rate Blood Pressure 136/85 135/84 (mmHg) O2 Sat by Pulse 96 97 Oximetry 09/23/16 07:30 Temperature Pulse Rate 64 Respiratory 14 Rate Blood Pressure 147/87 (mmHg) O2 Sat by Pulse 97 Oximetry - Intake and Output Intake and Output: Intake & Output 09/20/16 09/21/16 09/22/16 09/23/16 11:59 11:59 11:59 11:59 Intake Total 556 Output Total 200 Balance 356 Weight 236 lb 15.951 oz Intake: IV Fluids 556 NS (0.9%) 556 Output: Urine 200 Other: Estimated Void Medium # Voids 1 ADLs: Meal Record Start: 09/22/16 21: 02 Freq: 09,13,18 Status: Active Created 09/22/16 21:02 System (Rec: 09/22/16 21:02 System [id number]) Intake and Output Start: 09/22/16 19: 26 Freq: Status: Active Created 09/22/16 19:26 System (Rec: 09/22/16 19:26 System [id number]) Intake and Output Start: 09/22/16 21: 02 Freq: 06,14,22 Status: Active Created 09/22/16 21:02 System (Rec: 09/22/16 21:02 System [id number]) Document 09/23/16 00:06 [id number] (Rec: 09/23/16 00:06 [id number] [id number]) Document 09/23/16 02:06 [id number] (Rec: 09/23/16 02:08 [id number] [id number]) Document 09/23/16 06:00 [id number] (Rec: 09/23/16 06:01 [id number] [id number]) - Physical Exam General Physical Exam Comment: Warm and well perfused. Alert, fully oriented, conversational. He is able to get out of bed and walk independently. He has no dysphasia. General: No Cyanosis, No Anemia, No Jaundice, No Clubbing Skin: Normal: Rash Lungs and Chest: Yes: Chest Expansion Full, Chest Expansion Symetrica, Percussion Note Resonant, Vessicular Breath Sounds. No: Crackles, Wheezes Heart Rate and Rhythm: Regular JVP: Not Elevated Additional Cardiovascular: Yes: Normal Heart Sounds, Pedal Edema - trace. No: Heart Murmur Abdominal Exam: Yes: Soft, Bowel Sounds Present. No: Distention, Abdominal Tenderness, Guarding - Extremities Cranial Nerves II-XII Intact: Yes Limbs: Normal Power, Normal Tone, Normal Coordination, Abnormal Gait - unsteady , but walking independently - Neuro Orientation: A/O x3 Psychiatric: Normal Speech: Normal Results - Results Lab Results: Laboratory Results - last 24 hr 09/23/16 09/23/16 05:53 05:53 WBC 7.7 RBC 4.68 Hgb 14.7 Hct 44 MCV 95 H MCH 32 H MCHC 33 RDW 14 Plt Count 155 MPV 8 Sodium 135 Potassium 3.8 Chloride 105 Carbon Dioxide 25 Anion Gap 5 BUN 14 Creatinine 1.15 Est GFR ( Amer) 80.9 Est GFR (Non-Af Amer) 62.9 BUN/Creatinine Ratio 12.2 Glucose 93 Calcium 9.0 Radiology Results: Patient Name: MICHELL EDEN Medical Record#: [id number] Ordering Physician: Kane Rojas MD Acct.#: [id number] : 1945 Age: 70 Sex: M Location: IMAGING Exam Date: 09/22/16 ADM Status: REG REF Order Information: CT BRAIN WO Accession Number: [id number] CPT: 24545 Indication: Headache. CT of the brain was performed without IV contrast. No prior study is available for comparison. Ventricular structures are midline. No midline shift is noted. There is a intraparenchymal hematoma involving the left frontal lobe white matter. This measures approximately 19 x 14 mm. Mild ventriculomegaly is noted. Prominent extra-axial. No intraventricular hemorrhage is noted at the current time. Mastoid air cells and paranasal sinuses demonstrates chronic sinusitis of the ethmoid air cells and maxillary sinuses. No prior study is available for comparison. IMPRESSION: THERE IS A INTRAPARENCHYMAL HEMATOMA IN THE LEFT FRONTAL LOBE JUST SUPERIOR TO THE LEFT LATERAL VENTRICLE MEASURING 19 X 14 MM. NO MIDLINE SHIFT IS NOTED. NO DEFINITE INTRAVENTRICULAR HEMORRHAGE IS NOTED CURRENTLY. AGE RELATED ATROPHY. <Electronically signed by Milady Echevarria MD in [place]> 09/22/16 1606 Dictated By: Milady Echevarria MD Dictated Date/Time: 09/22/16 1606 Transcribed Date/Time: 09/22/16 1604 Copy to: CC:Kaen Rojas MD Imaging - [facility] Imaging - [place] [facility] [address] [place] [address] ph ([phone]) ph ([phone]) ph ([phone]) 1 of 1 EKG Report: Sinus rhythm 60 OH 158 QTc 477 QRSD 110 QRS axis 39. PACs. LVH Assessment - Problem List Assessment: Patient Problems Anticoagulant adverse reaction (Acute) Headache (Acute) Left-sided intracerebral hemorrhage (Acute) Urinary frequency (Acute) BPH (benign prostatic hyperplasia) (Chronic) Cardiomyopathy (Chronic) Chronic kidney disease, stage 3 (Chronic) DNR (do not resuscitate) (Chronic) Diabetic retinopathy (Chronic) Essential hypertension (Chronic) GERD (gastroesophageal reflux disease) (Chronic) History of atrial fibrillation (Chronic) History of cardiac radiofrequency ablation (Chronic) History of gout (Chronic) Hypercholesterolemia (Chronic) ICD (implantable cardioverter-defibrillator) in place (Chronic) Obesity (BMI 30.0-34.9) (Chronic) Primary hypothyroidism (Chronic) Type 2 diabetes mellitus (Chronic) Plan: Anticoagulant adverse reaction (Acute) He takes dabigatran for history of atrial fibrillation. This has a half life of around 12 - 17 hours. It takes between 3 - 5 half lives to return to baseline coagulation. I will therefore reverse this with praxbind. I have discussed the adverse effects (headache, hypokalemia, allergy), with the patient. He is in sinus rhythm - he is unaware of any recent atrial fibrillation - hence I think there is less risk of an embolic stroke from discontinuation of the anticoagulation Headache (Acute) This comes and goes - none yesterday Left-sided intracerebral hemorrhage (Acute) There is a risk it might hemorrhage into the lateral ventricle. Hence we are keeping his BP under control. I will discuss with the neurosurgeon if there is anything we can do about edema Urinary frequency (Acute) This has improved - there was no evidence of a UTI BPH (benign prostatic hyperplasia) (Chronic) The likely cause of his urinary frequency History of cardiac radiofrequency ablation (Chronic) - he had radiofrequency ablation on 08/11/2016 owing to activation of his ICD by atrial fibrillation. He is unaware of further episodes of atrial fibrillation. He has taken pradaxa for years. Cardiomyopathy (Chronic) This is non-ischemic - has LVH and diastolic dysfunction. His local dragline operator is Dr. Bob Jessica Chronic kidney disease, stage 3 (Chronic) no exacerbation DNR (do not resuscitate) (Chronic) We had a long discussion about this. He is clear that he doesn't want to be rescuscitated, particularly if there is no hope for functional recovery. He understands his risk of a major intracerebral hemorrhage into the lateral ventricle. He wants to be DNR. I note that he has an ICD. I discussed this with him, he doesn't want this disconnected, but he just doesn't want a code/intubation. Diabetic retinopathy (Chronic) ongoing Essential hypertension (Chronic) We are keeping his BP < 140 systolic GERD (gastroesophageal reflux disease) (Chronic) no symptoms History of atrial fibrillation (Chronic) sinus rhythm thus far History of gout (Chronic) Hypercholesterolemia (Chronic) continue current Rx ICD (implantable cardioverter-defibrillator) in place (Chronic) Obesity (BMI 30.0-34.9) (Chronic) ongoing Primary hypothyroidism (Chronic) continue current Rx Type 2 diabetes mellitus (Chronic) well controlled - last A1c 5.8% - diet and exercise, no medications. I demonstrated the images of the CT to the patient. He understands exactly about the intracerebral hemorrhage. I have asked him to discuss with the neurosurgeon the likelihood of worsening of the bleed. He agrees with the current management plan.
[2016-09-23 08:07] LABS: Urine Bacteria Absent (Absent); Urine Bilirubin Negative (Negative); Urine Glucose Negative (Negative); Urine Nitrite Negative (Negative)
[2016-09-23] MEDS: Sotalol TAB* 80 MG PO SCH (08:12)
[2016-09-23] MEDS: levETIRAcetam TAB* 500 MG PO SCH ×2 (08:12→20:38)
[2016-09-23] MEDS: Lisinopril TAB* 10 MG PO SCH (08:12)
[2016-09-23] MEDS: Docusate CAP* 100 MG PO SCH ×2 (08:17→20:39)
[2016-09-23] MEDS: CMCS - Epleronone (NF) 25 MG TAB PO SCH (08:17)
[2016-09-23] MEDS: Famotidine TAB* 20 MG PO SCH ×2 (08:17→20:39)
--- NOTE | 2016-09-23 10:04 | PN ---
Progress Note - Progress Note Date of Service: 09/23/16 Note: Pt doing well overnight mild headache controlled by Tylenol, ambulating, no LOC , seizure, nausea vomiting, weakness Vital Signs Temp 97.8 F 09/23/16 07:49 Pulse 66 09/23/16 09:00 Resp 17 09/23/16 09:00 BP 120/72 09/23/16 09:00 Pulse Ox 97 09/23/16 09:00 Intake & Output 09/22/16 09/23/16 09/23/16 19:59 07:59 19:59 Intake Total 556 827 Output Total 200 Balance 356 827 Weight 236 lb 15.951 oz Intake: IV Fluids 556 163 NS (0.9%) 556 163 Medicated IV 104 Praxbind 104 Oral 560 Output: Urine 200 Other: Estimated Void Medium # Voids 1 AAOx 3 PERRLA EOMI FS TML Abnormal Lab Results 09/22/16 09/22/16 09/22/16 19:59 19:59 19:59 WBC 9.0 RBC 5.02 Hgb 15.9 Hct 48 MCV 95 H MCH 32 H MCHC 33 RDW 14 Plt Count 181 MPV 8 Neut % (Auto) 59.1 Lymph % (Auto) 18.7 L [place] % (Auto) 11.0 H Eos % (Auto) 9.2 H Baso % (Auto) 2.0 Absolute Neuts (auto) 5.3 Absolute Lymphs (auto) 1.7 Absolute Monos (auto) 1.0 H Absolute Eos (auto) 0.8 H Absolute Basos (auto) 0.2 Absolute Nucleated RBC 0 Nucleated RBC % 0 INR (Anticoag Therapy) 1.15 H Sodium Potassium Chloride Carbon Dioxide Anion Gap BUN Creatinine Est GFR ( Amer) Est GFR (Non-Af Amer) BUN/Creatinine Ratio Glucose Lactic Acid 0.8 Calcium Total Bilirubin AST ALT Alkaline Phosphatase Total Protein Albumin Globulin Albumin/Globulin Ratio Urine Color Urine Appearance Urine pH Ur Specific [place] Urine Protein Urine Ketones Urine Blood Urine Nitrate Urine Bilirubin Urine Urobilinogen Ur Leukocyte Esterase Urine WBC (Auto) Urine RBC (Auto) Ur Squamous Epith Cells Urine Bacteria Urine Glucose 09/22/16 09/23/16 09/23/16 19:59 05:53 05:53 WBC 7.7 RBC 4.68 Hgb 14.7 Hct 44 MCV 95 H MCH 32 H MCHC 33 RDW 14 Plt Count 155 MPV 8 Neut % (Auto) Lymph % (Auto) [place] % (Auto) Eos % (Auto) Baso % (Auto) Absolute Neuts (auto) Absolute Lymphs (auto) Absolute Monos (auto) Absolute Eos (auto) Absolute Basos (auto) Absolute Nucleated RBC Nucleated RBC % INR (Anticoag Therapy) Sodium 136 135 Potassium 3.8 3.8 Chloride 103 105 Carbon Dioxide 25 25 Anion Gap 8 5 BUN 17 14 Creatinine 1.29 H 1.15 Est GFR ( Amer) 70.8 80.9 Est GFR (Non-Af Amer) 55.1 62.9 BUN/Creatinine Ratio 13.2 12.2 Glucose 114 H 93 Lactic Acid Calcium 9.4 9.0 Total Bilirubin 0.70 AST 22 ALT 15 Alkaline Phosphatase 77 Total Protein 7.3 Albumin 3.9 Globulin 3.4 Albumin/Globulin Ratio 1.1 Urine Color Urine Appearance Urine pH Ur Specific [place] Urine Protein Urine Ketones Urine Blood Urine Nitrate Urine Bilirubin Urine Urobilinogen Ur Leukocyte Esterase Urine WBC (Auto) Urine RBC (Auto) Ur Squamous Epith Cells Urine Bacteria Urine Glucose 09/23/16 07:45 WBC RBC Hgb Hct MCV MCH MCHC RDW Plt Count MPV Neut % (Auto) Lymph % (Auto) [place] % (Auto) Eos % (Auto) Baso % (Auto) Absolute Neuts (auto) Absolute Lymphs (auto) Absolute Monos (auto) Absolute Eos (auto) Absolute Basos (auto) Absolute Nucleated RBC Nucleated RBC % INR (Anticoag Therapy) Sodium Potassium Chloride Carbon Dioxide Anion Gap BUN Creatinine Est GFR ( Amer) Est GFR (Non-Af Amer) BUN/Creatinine Ratio Glucose Lactic Acid Calcium Total Bilirubin AST ALT Alkaline Phosphatase Total Protein Albumin Globulin Albumin/Globulin Ratio Urine Color Yellow Urine Appearance Clear Urine pH 6.0 Ur Specific [place] 1.006 L Urine Protein Negative Urine Ketones Negative Urine Blood 1+ H Urine Nitrate Negative Urine Bilirubin Negative Urine Urobilinogen Negative Ur Leukocyte Esterase Negative Urine WBC (Auto) Trace(0-5/hpf) Urine RBC (Auto) 1+(3-5/hpf) H Ur Squamous Epith Cells Present H Urine Bacteria Absent Urine Glucose Negative A/P 70M, on Pradexa for A Fib, found Headache and difficulty to walk for 10 days,CT showed left frontal area close to ventricle area has 19x 14 mm ICH without mass effect or midline shift, no IVH Doing well overnight. mild headache controlled by Tylenol, ambulating, no LOC, seizure, nausea vomiting, weakness Plan: ICU admission with neuro check q1h Stop Pradexa and other anticoagulant or antiplatelet. Control SBP less 140 mmhg Keppra 750 mg bid for 7 days avoid fluid overload CT scan today advance care, PT OT OOB Discussed with patient and primary team, please call for any questions
--- NOTE | 2016-09-23 11:47 | RAD ---
HISTORY: Follow-up intracranial hemorrhage COMPARISONS: 2017 TECHNIQUE: Multiple contiguous axial CT scans were obtained of the head without intravenous contrast. FINDINGS: HEMORRHAGE/INFARCT: Again noted is a focus of hemorrhage along the superior margin of the left lateral ventricle on the left frontal lobe. This is stable. There is vasogenic edema. Elsewhere, there is no hemorrhage or acute infarct. MASSES/SHIFT: There is no mass or shift. EXTRA-AXIAL SPACES: There are no extra-axial fluid collections. SULCI AND VENTRICLES: There is diffuse and proportional enlargement of the sulci and ventricles. CEREBRUM: Again noted is a focus of intraparenchymal hemorrhage along the superior margin of the left lateral ventricle with associated vasogenic edema. This is stable from September 22, 2016. BRAINSTEM: There are no focal parenchymal abnormalities. CEREBELLUM: There are no focal parenchymal abnormalities. VESSELS: The vessels are grossly normal. PARANASAL SINUSES: The paranasal sinuses are clear. ORBITS: The orbits are unremarkable. BONES AND SOFT TISSUE: No bone or soft tissue abnormalities are noted. OTHER: None IMPRESSION: STABLE LEFT FRONTAL PERIVENTRICULAR INTRAPARENCHYMAL HEMATOMA WITH ASSOCIATED VASOGENIC EDEMA. THERE IS NO SHIFT.
[2016-09-23] MEDS ORDERED: HYDROmorphone* 1 MG/ML 1 ML SYR ONE (16:16)
[2016-09-23] MEDS ORDERED: HYDROmorphone* 1 MG/ML 1 ML SYR IV PRN (16:22)
--- NOTE | 2016-09-23 19:03 | RAD ---
Indication: Recurrent head pain. CT of the brain was performed without IV contrast. Comparison is made with previous exam dated September 23, 2016. Again noted is a intraparenchymal hematoma in the left frontal lobe unchanged in size since previous exam. No intraventricular hemorrhage is noted. Central and cortical atrophy is noted. Posterior fossa and brainstem are otherwise unremarkable. IMPRESSION: INTRAPARENCHYMAL HEMATOMA IN THE LEFT FRONTAL LOBE NOT SIGNIFICANTLY CHANGED SINCE SEPTEMBER 23, 2016. ATROPHY IS NOTED. NO INTRAVENTRICULAR HEMORRHAGE IS NOTED.
[2016-09-23] MEDS: Atorvastatin* 40 MG TAB PO SCH (20:39)
[2016-09-24] MEDS: Acetaminophen TAB* 325 MG PO PRN (00:38)
[2016-09-24] MEDS: Omeprazole CAP* 20 MG PO SCH (05:51)
[2016-09-24] MEDS: Levothyroxine TAB* 100 MCG TAB PO SCH (05:51)
[2016-09-24 06:00] LABS: Hematocrit 44 % (42-52); Hemoglobin 14.6 g/dl (14.0-18.0); Mean Corpuscular HGB Conc 33 g/dl (31-36); Mean Corpuscular Hemoglobin 32 pg (27-31); Mean Corpuscular Volume 96 fL (80-94); Mean Platelet Volume 8 um3 (7.4-10.4); Red Blood Count 4.63 10^6/ul (4.0-5.4); Red Cell Distribution Width 14 % (10.5-15); White Blood Count 7.7 10^3/ul (3.5-10.8)
[2016-09-24 06:11] LABS: BUN/Creatinine Ratio 12.3 (8-20); Calcium 8.9 mg/dL (8.6-10.3); EGFR African American 81.7 (>60); EGFR Non-African American 63.5 (>60); Potassium 3.8 mmol/L (3.5-5.0)
--- NOTE | 2016-09-24 07:59 | PN ---
Subjective - Subjective Reason for Note: Progress Note History: DISCHARGE SUMMARY He presented with a left sided intracerebral hemorrhage whilst taking dabigatran. We reversed this. He had an exacerbation of his headache following this - a known side effect of praxibind. This is down to 04/30 today. He feels well today, no new neurological symptoms/deficits. BP, glucose stable Current Medications: Current Medications Acetaminophen (Tylenol Tab*) 650 mg PO Q6H PRN PRN Reason: FEVER/PAIN Last Admin: 09/24/16 00:38 Dose: 650 mg Atorvastatin Calcium (Lipitor*) 40 mg PO BEDTIME [facility] Last Admin: 09/23/16 20:39 Dose: 40 mg Docusate Sodium (Colace Cap*) 200 mg PO BID [facility] Last Admin: 09/23/16 20:39 Dose: 200 mg Eplerenone (Inspra (Nf)) 25 mg PO DAILY [facility] Last Admin: 09/23/16 08:17 Dose: 25 mg Famotidine (Pepcid Tab*) 20 mg PO BID [facility] PRN Reason: Protocol Last Admin: 09/23/16 20:39 Dose: 20 mg Hydralazine HCl (Apresoline Iv*) 10 mg IV Q4H PRN PRN Reason: systolic >135 Last Admin: 09/23/16 08:11 Dose: 10 mg Hydromorphone HCl (Dilaudid Iv*) 0.5 mg IV Q2H PRN PRN Reason: PAIN Last Admin: 09/24/16 03:23 Dose: 0.5 mg Levetiracetam (Keppra Tab*) 750 mg PO BID [facility] Last Admin: 09/23/16 20:38 Dose: 750 mg Levothyroxine Sodium (Synthroid Tab*) 100 mcg PO DAILY@0600 [facility] Last Admin: 09/24/16 05:51 Dose: 100 mcg Lisinopril (Prinivil Tab*) 40 mg PO DAILY [facility] Last Admin: 09/23/16 08:12 Dose: 40 mg Melatonin (Melatonin (Nf)) 3 mg PO BEDTIME PRN; Protocol PRN Reason: Sleep Omeprazole (Prilosec Cap*) 20 mg PO DAILY@0600 [facility] Last Admin: 09/24/16 05:51 Dose: 20 mg Ondansetron HCl (Zofran Inj*) 4 mg IV Q6H PRN PRN Reason: NAUSEA Last Admin: 09/23/16 16:19 Dose: 4 mg Sotalol HCl (Betapace Tab*) 120 mg PO DAILY [facility] Last Admin: 09/23/16 08:12 Dose: 120 mg - Review of Systems Pulmonary: Negative: Cough, Sputum, Respiratory Distress Cardiology: Positive: Swelling of Ankles - mild Negative: Chest Pain, Shortness of Breath, Palpitations Gastroenterology: Negative: Abdominal Pain, Nausea, Vomiting, Change in Bowel Habits Genital - Urinary: Negative: Dysuria, Polyuria Home Medications: Home Medications Medication Instructions Recorded Confirmed Type Dabigatran CAP(NF) [Pradaxa 150 mg PO BID 04/21/15 09/22/16 History CAP(NF)] Levothyroxine TAB* [Synthroid TAB*] 100 mcg PO DAILY 04/21/15 09/22/16 History Ranitidine TAB (NF) [Zantac TAB 150 mg PO BID 04/21/15 09/22/16 History (NF)] Simvastatin (NF) [Zocor (NF)] 80 mg PO BEDTIME 04/21/15 09/22/16 History Sotalol TAB* [Betapace TAB*] 120 mg PO DAILY 04/21/15 09/22/16 History Lactobacillus [Probiotic] 1 cap PO DAILY 04/19/16 09/22/16 History Lisinopril TAB* [Prinivil TAB*] 40 mg PO DAILY 04/19/16 09/22/16 History Eplerenone 25 mg PO DAILY 09/22/16 09/22/16 History Allergies: Allergies Allergy/AdvReac Type Severity Reaction Status Date / Time Digoxin Allergy Unknown Verified 04/21/15 14:01 Reaction Details Penicillins Allergy Unknown Verified 04/21/15 14:00 Reaction Details Objective - Vital Signs Vital Signs: Vital Signs 09/23/16 09/23/16 09/23/16 08:00 08:30 09:00 Temperature Pulse Rate 61 65 66 Respiratory 17 17 17 Rate Blood Pressure 162/98 135/74 120/72 (mmHg) O2 Sat by Pulse 97 97 97 Oximetry 09/23/16 09/23/16 09/23/16 09:42 10:00 10:30 Temperature Pulse Rate 67 62 Respiratory 17 14 Rate Blood Pressure 126/93 125/78 (mmHg) O2 Sat by Pulse 96 97 Oximetry 09/23/16 09/23/16 09/23/16 10:34 10:51 11:00 Temperature Pulse Rate 61 60 Respiratory 15 13 Rate Blood Pressure 137/69 120/75 (mmHg) O2 Sat by Pulse 96 97 Oximetry 09/23/16 09/23/16 09/23/16 11:30 11:31 12:00 Temperature 98.0 F Pulse Rate 60 72 Respiratory 17 15 Rate Blood Pressure 129/72 131/75 (mmHg) O2 Sat by Pulse 97 99 Oximetry 09/23/16 09/23/16 09/23/16 12:22 12:30 13:00 Temperature Pulse Rate 58 59 Respiratory 14 15 Rate Blood Pressure 130/83 (mmHg) O2 Sat by Pulse 98 100 100 Oximetry 09/23/16 09/23/16 09/23/16 13:30 14:00 14:30 Temperature Pulse Rate 90 59 61 Respiratory 15 15 15 Rate Blood Pressure 124/91 113/69 120/76 (mmHg) O2 Sat by Pulse 99 97 98 Oximetry 09/23/16 09/23/16 09/23/16 14:59 15:30 15:47 Temperature 98.6 F Pulse Rate 60 44 Respiratory 16 20 Rate Blood Pressure 130/74 (mmHg) O2 Sat by Pulse 97 87 Oximetry 09/23/16 09/23/16 09/23/16 16:00 16:19 16:30 Temperature Pulse Rate 62 64 Respiratory 15 16 Rate Blood Pressure 130/84 137/83 (mmHg) O2 Sat by Pulse 98 95 Oximetry 09/23/16 09/23/16 09/23/16 16:42 17:00 17:30 Temperature Pulse Rate 59 59 59 Respiratory 16 15 Rate Blood Pressure 130/77 130/78 115/59 (mmHg) O2 Sat by Pulse 96 95 96 Oximetry 09/23/16 09/23/16 09/23/16 18:00 19:00 19:30 Temperature Pulse Rate 61 59 60 Respiratory 8 15 13 Rate Blood Pressure 124/73 (mmHg) O2 Sat by Pulse 96 96 97 Oximetry 09/23/16 09/23/16 09/23/16 19:51 20:00 20:30 Temperature 98.0 F Pulse Rate 59 59 Respiratory 12 13 Rate Blood Pressure 117/61 120/66 (mmHg) O2 Sat by Pulse 97 97 Oximetry 09/23/16 09/23/16 09/23/16 21:00 21:30 21:48 Temperature Pulse Rate 62 65 60 Respiratory 14 19 14 Rate Blood Pressure 135/79 125/83 (mmHg) O2 Sat by Pulse 99 98 97 Oximetry 09/23/16 09/23/16 09/23/16 22:00 22:30 23:00 Temperature Pulse Rate 59 62 62 Respiratory 14 14 11 Rate Blood Pressure 120/77 107/66 118/82 (mmHg) O2 Sat by Pulse 96 96 95 Oximetry 09/23/16 09/23/16 09/24/16 23:03 23:30 00:00 Temperature 98.4 F Pulse Rate 59 61 59 Respiratory 14 13 14 Rate Blood Pressure 114/70 (mmHg) O2 Sat by Pulse 95 95 95 Oximetry 09/24/16 09/24/16 09/24/16 00:01 00:30 01:00 Temperature Pulse Rate 60 59 60 Respiratory 14 16 15 Rate Blood Pressure 112/67 104/56 (mmHg) O2 Sat by Pulse 95 94 96 Oximetry 09/24/16 09/24/16 09/24/16 01:30 02:00 02:30 Temperature Pulse Rate 59 59 59 Respiratory 15 15 16 Rate Blood Pressure 119/59 105/65 109/65 (mmHg) O2 Sat by Pulse 95 95 95 Oximetry 09/24/16 09/24/16 09/24/16 03:00 03:23 03:30 Temperature Pulse Rate 61 64 Respiratory 15 16 13 Rate Blood Pressure 120/68 130/77 (mmHg) O2 Sat by Pulse 95 96 Oximetry 09/24/16 09/24/16 09/24/16 03:49 04:00 04:30 Temperature 98.1 F Pulse Rate 60 59 Respiratory 12 11 Rate Blood Pressure 119/73 112/71 (mmHg) O2 Sat by Pulse 93 93 Oximetry 09/24/16 09/24/16 09/24/16 05:00 05:30 06:00 Temperature Pulse Rate 60 60 61 Respiratory 11 12 11 Rate Blood Pressure 109/68 113/70 131/76 (mmHg) O2 Sat by Pulse 94 94 96 Oximetry 09/24/16 09/24/16 09/24/16 06:30 07:00 07:22 Temperature 98.3 F Pulse Rate 60 61 Respiratory 12 13 Rate Blood Pressure 125/79 139/78 (mmHg) O2 Sat by Pulse 94 97 Oximetry 09/24/16 09/24/16 07:30 07:47 Temperature Pulse Rate 66 Respiratory 15 11 Rate Blood Pressure 140/85 (mmHg) O2 Sat by Pulse 97 Oximetry - Intake and Output Intake and Output: Intake & Output 09/21/16 09/22/16 09/23/16 09/24/16 11:59 11:59 11:59 11:59 Intake Total 1383 1100 Output Total 600 1550 Balance 783 -450 Weight 236 lb 15.951 oz 235 lb 14.314 oz Intake: IV Fluids 719 0 NS (0.9%) 719 0 Medicated IV 104 Praxbind 104 Oral 560 1100 Output: Urine 600 1550 Other: Estimated Void Medium # Voids 1 1 ADLs: Meal Record Start: 09/22/16 21: 02 Freq: 09,13,18 Status: Active Document 09/23/16 09:00 [id number] (Rec: 09/23/16 09:27 [id number] ICU-C10) Document 09/23/16 13:08 [id number] (Rec: 09/23/16 13:08 [id number] ICU-C10) Document 09/23/16 18:00 [id number] (Rec: 09/23/16 18:06 [id number] ICU-C10) Intake and Output Start: 09/22/16 21: 02 Freq: 06,14,22 Status: Active Document 09/23/16 00:06 [id number] (Rec: 09/23/16 00:06 [id number] ICU-C10) Document 09/23/16 02:06 [id number] (Rec: 09/23/16 02:08 [id number] ICU-C10) Document 09/23/16 06:00 [id number] (Rec: 09/23/16 06:01 [id number] ICU-M08) Document 09/23/16 08:00 [id number] (Rec: 09/23/16 13:25 [id number] ICU-C10) Document 09/23/16 13:25 [id number] (Rec: 09/23/16 13:25 [id number] ICU-C10) Document 09/23/16 13:35 [id number] (Rec: 09/23/16 13:35 [id number] ICU-C10) Document 09/23/16 15:32 [id number] (Rec: 09/23/16 15:32 [id number] ICU-C10) Document 09/23/16 16:28 [id number] (Rec: 09/23/16 16:28 [id number] ICU-C10) Document 09/23/16 18:48 [id number] (Rec: 09/23/16 18:48 [id number] ICU-C10) Document 09/23/16 22:00 [id number] (Rec: 09/23/16 23:01 [id number] ICU-C15) Document 09/24/16 00:52 [id number] (Rec: 09/24/16 00:52 [id number] ICU-C15) Document 09/24/16 06:00 [id number] (Rec: 09/24/16 06:24 [id number] ICU-C15) - Physical Exam General: No Cyanosis, No Anemia, No Jaundice, No Clubbing Skin: Normal: Rash Lungs and Chest: Yes: Chest Expansion Full, Chest Expansion Symetrica, Percussion Note Resonant, Vessicular Breath Sounds. No: Crackles, Wheezes Heart Rate and Rhythm: Regular JVP: Not Elevated Additional Cardiovascular: Yes: Normal Heart Sounds, Pedal Edema - trace. No: Heart Murmur Abdominal Exam: Yes: Soft, Bowel Sounds Present. No: Distention, Abdominal Mass , Abdominal Tenderness - Extremities Cranial Nerves II-XII Intact: Yes Limbs: Normal Power, Normal Tone, Normal Coordination - Neuro Orientation: A/O x3 Psychiatric: Normal Speech: Normal Results - Results Lab Results: Laboratory Results - last 24 hr 09/23/16 09/24/16 09/24/16 07:45 05:50 05:50 WBC 7.7 RBC 4.63 Hgb 14.6 Hct 44 MCV 96 H MCH 32 H MCHC 33 RDW 14 Plt Count 148 L MPV 8 Neut % (Auto) 59.9 Lymph % (Auto) 19.1 L Cannon % (Auto) 10.4 H Eos % (Auto) 9.2 H Baso % (Auto) 1.4 Absolute Neuts (auto) 4.6 Absolute Lymphs (auto) 1.5 Absolute Monos (auto) 0.8 Absolute Eos (auto) 0.7 H Absolute Basos (auto) 0.1 Absolute Nucleated RBC 0 Nucleated RBC % 0 Sodium 134 Potassium 3.8 Chloride 105 Carbon Dioxide 24 Anion Gap 5 BUN 14 Creatinine 1.14 Est GFR ( Amer) 81.7 Est GFR (Non-Af Amer) 63.5 BUN/Creatinine Ratio 12.3 Glucose 91 Calcium 8.9 Urine Color Yellow Urine Appearance Clear Urine pH 6.0 Ur Specific [place] 1.006 L Urine Protein Negative Urine Ketones Negative Urine Blood 1+ H Urine Nitrate Negative Urine Bilirubin Negative Urine Urobilinogen Negative Ur Leukocyte Esterase Negative Urine WBC (Auto) Trace(0-5/hpf) Urine RBC (Auto) 1+(3-5/hpf) H Ur Squamous Epith Cells Present H Urine Bacteria Absent Urine Glucose Negative Assessment - Problem List Assessment: Patient Problems Anticoagulant adverse reaction (Acute) Headache (Acute) Left-sided intracerebral hemorrhage (Acute) Urinary frequency (Acute) BPH (benign prostatic hyperplasia) (Chronic) Cardiomyopathy (Chronic) Chronic kidney disease, stage 3 (Chronic) DNR (do not resuscitate) (Chronic) Diabetic retinopathy (Chronic) Essential hypertension (Chronic) GERD (gastroesophageal reflux disease) (Chronic) History of atrial fibrillation (Chronic) History of cardiac radiofrequency ablation (Chronic) History of gout (Chronic) Hypercholesterolemia (Chronic) ICD (implantable cardioverter-defibrillator) in place (Chronic) Obesity (BMI 30.0-34.9) (Chronic) Primary hypothyroidism (Chronic) Type 2 diabetes mellitus (Chronic) Plan: Anticoagulant adverse reaction (Acute) Left-sided intracerebral hemorrhage ( Acute) We have reversed the dabigatran. He is stable and has no signs of neurological progression of this lesion. Headache (Acute) This is mild today Urinary frequency (Acute) This has resolved BPH (benign prostatic hyperplasia) (Chronic) ongoing Cardiomyopathy (Chronic) Non- ischemic - secondary diagnosis Chronic kidney disease, stage 3 (Chronic) stable DNR (do not resuscitate) (Chronic) I will discuss this again when he has recovered from the hemorrhage - he wants the ICD maintained Diabetic retinopathy (Chronic) secondary diagnosis Essential hypertension (Chronic) Stable GERD (gastroesophageal reflux disease) (Chronic) no symptoms History of atrial fibrillation (Chronic) History of cardiac radiofrequency ablation (Chronic) Telemetry shows no further atrial fibrillation - I think he is now at a lesser risk of embolic stroke post-radiofrequency ablation. Nursing Home we will consider aspirin vs anticoagulation - I suspect he will chose the former History of gout (Chronic) secondary diagnosis Hypercholesterolemia (Chronic) secondary diagnosis ICD (implantable cardioverter-defibrillator) in place (Chronic) functioning Obesity (BMI 30.0-34.9) (Chronic) secondary diagnosis Primary hypothyroidism (Chronic) secondary diagnosis Type 2 diabetes mellitus (Chronic) well controlled I spoke with the patient and explained the nature of his stroke. I told him to rest for a couple of weeks while the clot resolves. I will obtain a CTA as an outpatient once he has recovered fully from the stroke looking for underlying causes for the hemorrhage.
[2016-09-24] MEDS: Sotalol TAB* 80 MG PO SCH (08:09)
[2016-09-24] MEDS: Lisinopril TAB* 10 MG PO SCH (08:09)
[2016-09-24] MEDS: Docusate CAP* 100 MG PO SCH (08:09)
[2016-09-24] MEDS: levETIRAcetam TAB* 500 MG PO SCH (08:09)
[2016-09-24] MEDS: CMCS - Epleronone (NF) 25 MG TAB PO SCH (08:09)
[2016-09-24] MEDS: Famotidine TAB* 20 MG PO SCH (08:10)
--- NOTE | 2016-09-24 09:33 | PN ---
Progress Note - Progress Note Date of Service: 09/24/16 Note: - Progress Note Date of Service: 09/23/16 Note: Pt did have one episode of increasing headache and nausea, repeated CT stable otherwise Pt doing well mild headache 2/10 Vital Signs Temp 98.3 F 09/24/16 07:22 Pulse 63 09/24/16 09:00 Resp 13 09/24/16 09:00 BP 131/91 09/24/16 09:00 Pulse Ox 97 09/24/16 09:00 Intake & Output 09/23/16 09/24/16 09/24/16 19:59 07:59 19:59 Intake Total 1137 790 Output Total 1550 400 Balance -413 390 Weight 235 lb 14.314 oz Intake: IV Fluids 163 NS (0.9%) 163 Medicated IV 104 Praxbind 104 Oral 870 790 Output: Urine 1550 400 Other: # Voids 1 AAOx 3 PERRLA EOMI Face symmertric Tongue ML Move BLE and BUE Abnormal Lab Results 09/24/16 09/24/16 05:50 05:50 WBC 7.7 RBC 4.63 Hgb 14.6 Hct 44 MCV 96 H MCH 32 H MCHC 33 RDW 14 Plt Count 148 L MPV 8 Neut % (Auto) 59.9 Lymph % (Auto) 19.1 L [place] % (Auto) 10.4 H Eos % (Auto) 9.2 H Baso % (Auto) 1.4 Absolute Neuts (auto) 4.6 Absolute Lymphs (auto) 1.5 Absolute Monos (auto) 0.8 Absolute Eos (auto) 0.7 H Absolute Basos (auto) 0.1 Absolute Nucleated RBC 0 Nucleated RBC % 0 Sodium 134 Potassium 3.8 Chloride 105 Carbon Dioxide 24 Anion Gap 5 BUN 14 Creatinine 1.14 Est GFR ( Amer) 81.7 Est GFR (Non-Af Amer) 63.5 BUN/Creatinine Ratio 12.3 [address] scan stable for ICH A/P 70M, on Pradexa for A Fib, found Headache and difficulty to walk for 10 days, repeated CT showed left frontal area close to ventricle area has 19x 14 mm ICH without mass effect or midline shift, no IVH mild headache controlled by Tylenol, ambulating, no LOC, seizure, nausea vomiting, weakness Plan: Transfer to floor Stop Pradexa and other anticoagulant or antiplatelet. Keppra 750 mg bid for 7 days avoid fluid overload advance care, PT OT OOB He could be discharged any time Discussed with patient and primary team, please call for any questions
[2016-09-24 11:24] VITALS: BP 112/71
== END 2016-09-24 08:02 | disposition home or self-care (01) ==
LOC: ED 18:52 → ICU 20:09 → INTOOBSV 20:09
PROVIDERS: ADMIT Hospitalist; ATTEND Internal Medicine
DX: I61.8 Other nontraumatic intracerebral hemorrhage (principal); I48.91 Unspecified atrial fibrillation; Z79.01 Long term (current) use of anticoagulants; I10 Essential (primary) hypertension; E78.5 Hyperlipidemia, unspecified; E03.9 Hypothyroidism, unspecified; K21.9 Gastro-esophageal reflux disease without esophagitis; M10.9 Gout, unspecified; Z88.0 Allergy status to penicillin; E11.319 Type 2 diabetes mellitus with unspecified diabetic retinopathy without macular edema; E78.00 Pure hypercholesterolemia, unspecified; Z88.8 Allergy status to other drugs, medicaments and biological substances; Z95.810 Presence of automatic (implantable) cardiac defibrillator; I12.9 Hypertensive chronic kidney disease with stage 1 through stage 4 chronic kidney disease, or unspecified chronic kidney disease; N18.3 Chronic kidney disease, stage 3 (moderate); Z79.899 Other long term (current) drug therapy; I42.9 Cardiomyopathy, unspecified
CPT/HCPCS: 36415; 70450; 80048; 80053; 81003; 81015; 83605; 85025; 85027; 85610; 87641; 93005; 94760; 96374; 96375; 96376; 99283; A9270-GY; G0378; G8978-GP-CH; G8979-GP-CH; G8980-GP-CH; G8987-GO-CH; G8988-GO-CH; J0360; J1170; J2405

== ENCOUNTER 2016-09-24 19:48 | Emergency (ER) | payer MEDICARE ==
--- NOTE | 2016-09-24 21:24 | RAD ---
Indication: Ataxia. CT of the brain was performed without IV contrast. Comparison is made with previous exam done September 23, 2016. Again noted is a left frontal lobe parenchymal hematoma unchanged in size or position since prior exams. Ventriculomegaly is noted. No intra- ventricular hemorrhage is noted. No midline shift is noted. Mild ventriculomegaly is present. Overall no changes noted since previous exam. IMPRESSION: Left frontal periventricular intraparenchymal hematoma with vasogenic edema unchanged from previous exam. No midline shift is noted.
[2016-09-24 22:23] VITALS: BP 145/70
--- NOTE | 2016-09-24 22:53 | ED ---
Claudia Zavala Salem, scribed for Manoj Alvarado MD on 09/24/16 at 2036 . Dizziness - HPI Summary HPI Summary: Patient is a 70 y/o M who presents to the ED per EMS with dizziness since earlier today. He states that he was discharged from [facility] this morning after a hemorrhage while being on a blood thinner. He states that he did some minor exercise (walking around) after arriving home and then felt unsteady or off- balance. He also states that his lower extremities have felt heavy since the hemorrhage. - History Of Current Complaint Stated Complaint: DIZZINESS Time Seen by Provider: 09/24/16 20:02 Hx Obtained From: Patient Onset/Duration: Still Present Timing: Hours Severity Initially: Moderate Severity Currently: Moderate Character: Dizzy - Unsteady. Aggravating Factor(s): Exertion Alleviating Factor(s): Rest Associated Signs And Symptoms: Positive: Negative - Allergies/Home Medications Allergies/Adverse Reactions: Allergies Allergy/AdvReac Type Severity Reaction Status Date / Time Digoxin Allergy Unknown Verified 04/21/15 14:01 Reaction Details Penicillins Allergy Unknown Verified 04/21/15 14:00 Reaction Details PMH/Surg Hx/FS Hx/Imm Hx Endocrine/Hematology History: Denies: Hx Diabetes, Hx Anemia Cardiovascular History: Reports: Hx Auto Implanted Cardiovert Defib - 2003, Hx Congestive Heart Failure, Hx Hypertension, Hx Pacemaker/ICD Respiratory History: Denies: Hx Chronic Obstructive Pulmonary Disease (COPD) GI History: Denies: Hx Jaundice History: Denies: Hx Dialysis Musculoskeletal History: Denies: Hx Back Problems Sensory History: Reports: Hx Contacts or Glasses Denies: Hx Hearing Aid Opthamlomology History: Reports: Hx Contacts or Glasses Neurological History: Denies: Hx Dementia, Hx Seizures Psychiatric History: Reports: Hx Depression - in the past, no currently taking any medication at this time - Surgical History Surgery Procedure, Year, and Place: pinning right knee fx. cardiac ablation. AICD placement and battery change Hx Anesthesia Reactions: No Infectious Disease History: Denies: Traveled Outside the [place] in Last 30 Days - Family History Known Family History: Positive: Hypertension, Other - HLD. - Social History Alcohol Use: None Hx Substance Use: No Substance Use Type: Reports: None Smoking Status (MU): Unknown if Ever Smoked Review of Systems Constitutional: Negative Negative: Fever Neurological: Other - Dizziness. "Unsteady." All Other Systems Reviewed And Are Negative: Yes Physical Exam Triage Information Reviewed: Yes Vital Signs On Initial Exam: Last Vital Signs 09/24/16 20:30 Temperature 98 F Pulse Rate 65 Respiratory 16 Rate Blood Pressure 148/98 (mmHg) O2 Sat by Pulse 98 Oximetry Vital Signs Reviewed: Yes Appearance: Positive: Well-Appearing, No Pain Distress, Obese Skin: Positive: Warm, Skin Color Reflects Adequate Perfusion, Dry Head/Face: Positive: Normal Head/Face Inspection Eyes: Positive: Normal Neck: Positive: Supple, Nontender Respiratory/Lung Sounds: Positive: Clear to Auscultation, Breath Sounds Present Cardiovascular: Positive: RRR Abdomen Description: Positive: Nontender, Soft Bowel Sounds: Positive: Present Musculoskeletal: Positive: Normal Neurological: Positive: Normal Psychiatric: Positive: Normal, Affect/Mood Appropriate Diagnostics - Vital Signs Vital Signs Temp Pulse Resp BP Pulse Ox 09/24/16 22:23 145/70 09/24/16 22:19 98 F 63 16 97 09/24/16 20:30 98 F 65 16 148/98 98 - Laboratory Lab Statement: Any lab studies that have been ordered have been reviewed, and results considered in the medical decision making process. - CT BRAIN CT Interpretation Completed By: Radiologist - IMPRESSION: Left frontal periventricular intraparenchymal hematoma with vasogenic edema unchanged from previous exam. No midline shift is noted. Re-Evaluation - Re-Evaluation First Eval Re-Evaluation Time: 22:04 Comment: Reviewed imaging with pt and family. Dizzy Course/Dx - Course Course Of Treatment: Mr. Burger returned worried that he had additional bleeding. A CT was unchanged and he was relieved. - Diagnoses Provider Diagnoses: Hemorrhagic stroke Discharge - Discharge Plan Condition: Stable Disposition: HOME Referrals: Kane Rojas MD [Primary Care Provider] - Additional Instructions: Please follow up with your primary care provider. The documentation as recorded by the Claudia herron Salem accurately reflects the service I personally performed and the decisions made by me, Manoj Alvarado MD.
== END 2016-09-24 22:31 | disposition home or self-care (01) ==
LOC: ED 19:48
DX: I61.9 Nontraumatic intracerebral hemorrhage, unspecified (principal); Z79.01 Long term (current) use of anticoagulants; R42 Dizziness and giddiness; I10 Essential (primary) hypertension; Z95.810 Presence of automatic (implantable) cardiac defibrillator; Z88.0 Allergy status to penicillin; Z88.8 Allergy status to other drugs, medicaments and biological substances
CPT/HCPCS: 70450; 99282

== ENCOUNTER 2017-12-28 11:37 | Day surgery (SDC) | payer MEDICARE, OTHER ==
[~2017-12-28 11:37] MED LIST: Acetaminophen TAB* 325 MG PO PRN; Buffered Lidocaine 0.9% SYRIN* 5 ML/SYR SYRINGE INTRADERM ONE
[2017-12-28] MEDS ORDERED: fentaNYL* 50 MCG/ML 2 ML VIAL (100 MCG VIAL) ONE (13:14)
[2017-12-28] MEDS ORDERED: Midazolam* 1 MG/ML 2 ML VIAL (2 MG) ONE (13:14)
[2017-12-28 14:00] VITALS: BP 127/74
[2017-12-28] MEDS ORDERED: Neomycin/Polymy/Dex OPTH.SUSP* MAXITROL 0.1% 5 ML ONE (14:56)
[2017-12-28] MEDS ORDERED: acetaZOLAMIDE TAB* 250 MG ONE (14:56)
[2017-12-28] MEDS ORDERED: Cyclopentolate 1% OPTH.SOL* 2 ML BTL ONE (14:56)
[2017-12-28] MEDS ORDERED: Lidocaine 2% EPI 1:200000 MPF*10-20 ML VIAL ONE (14:56)
[2017-12-28] MEDS ORDERED: Ketorolac 0.5% OPHTH (NF) 0.5 % 5 ML BTL ONE (14:56)
[2017-12-28] MEDS ORDERED: Phenylephrine 2.5% OPTH.SOL* 2 ML BTL ONE (14:56)
[2017-12-28] MEDS ORDERED: Povidone Iodine 5% OPTH* 30 ML BTL ONE (14:56)
[2017-12-28] MEDS ORDERED: Proparacaine 0.5% OPHTH.SOL* 15 ML BTL ONE (14:56)
[2017-12-28] MEDS ORDERED: Lidocaine 1%* 5 ML VIAL ONE (14:56)
--- NOTE | 2017-12-29 10:49 | OP ---
OPERATIVE NOTE: DATE OF OPERATION: 12/28/17 - [facility] DATE OF : 45 SURGEON: John Parrish M.D. PREOPERATIVE DIAGNOSIS: Cataract, left. POSTOPERATIVE DIAGNOSIS: Cataract, left. OPERATIVE PROCEDURE: Extracapsular cataract extraction with IOL, intraocular lens implant left eye. PROCEDURE: The patient was brought to the operating room after being given 1/2 % Alcaine with epinephrine drops in the preoperative area. The eye was prepped and draped in the usual sterile fashion. Sterile drape and eyelid speculum were placed. Again, topical 1/2% Alcaine with epinephrine was given. A paracentesis incision was made at the 3 o'clock position with the No.75 blade. Clear cornea incision 2.2 x 2.2-mm was created at the 6 o'clock position starting at the anterior limbus using the 2.2-mm keratome. The anterior chamber was irrigated with 0.4 mL of 1% non-preservative intracameral lidocaine and filled with DisCoVisc. A capsulorrhexis was completed using the cystotome and the Utrata forceps. Hydrodissection was performed with balanced salt solution. The lens nucleus was removed with the Phacoemulsification handpiece without incident. Cortex was removed with the irrigation-aspiration handpiece. The capsular bag was re-inflated using DisCoVisc and an [id number] implant was inserted with the shooter. The pupil is very small, so a Malyugin ring was used to dilate the pupil prior to capsulorrhexis, removed after insertion of the lens. The irrigation-aspiration handpiece was used to remove all residual DisCoVisc. The eye was refilled with balanced salt solution and the wound checked and found to be watertight. Topical Maxitrol drops were given. Indication for complex cataract surgery: Pupil abnormalities requiring pupil dilation device. [id number]/[facility] #: [id number]
== END 2017-12-28 14:07 | disposition home or self-care (01) ==
LOC: OREAST 11:37
PROVIDERS: ATTEND Specialist
DX: H25.812 Combined forms of age-related cataract, left eye (principal); H35.3132 Nonexudative age-related macular degeneration, bilateral, intermediate dry stage; E11.9 Type 2 diabetes mellitus without complications; Z79.84 Long term (current) use of oral hypoglycemic drugs; Z87.891 Personal history of nicotine dependence; N18.3 Chronic kidney disease, stage 3 (moderate); I48.91 Unspecified atrial fibrillation; Z95.810 Presence of automatic (implantable) cardiac defibrillator; E03.9 Hypothyroidism, unspecified; Z79.01 Long term (current) use of anticoagulants; Z86.73 Personal history of transient ischemic attack (TIA), and cerebral infarction without residual deficits; I50.9 Heart failure, unspecified
CPT/HCPCS: A9270-GY; J2250; J3010; V2632

== ENCOUNTER → 2018-04-03 11:37 | Day surgery (SDC) | payer MEDICARE ==
[~2018-04-03 11:37] MED LIST changes: -Acetaminophen TAB* 325 MG PO PRN; -Buffered Lidocaine 0.9% SYRIN* 5 ML/SYR SYRINGE INTRADERM ONE; +Clindamycin 600 MG IVPREMIX(* 600 MG/50 ML SDV IV ONE; +Diazepam TAB(*) 5 MG ONE; +Lidocaine 1% INJ* 10 MG/ML 30 ML SDV ONE; +Midazolam* 1 MG/ML 5 ML VIAL (5 MG) ONE; +fentaNYL* 50 MCG/ML 2 ML VIAL (100 MCG VIAL) ONE
[2018-04-03 15:44] VITALS: BP 120/88
--- NOTE | 2018-04-03 21:17 | OP ---
CC: Dr. Bob Jessica; Dr. Kane Rojas.* DATE OF OPERATION: 04/03/18 - [facility] CATH DATE OF : 45 SURGEON: Win Pringle MD ANESTHESIA: Local anesthesia for conscious sedation. PRE-OP DIAGNOSIS: Cardiomyopathy, ICD at elective replacement indicator. POST-OP DIAGNOSIS: Cardiomyopathy, ICD at elective replacement indicator. OPERATIVE PROCEDURE: Dual-chamber ICD generator change. ESTIMATED BLOOD LOSS: Nil. COMPLICATIONS: None. INDICATIONS: The patient is a 72-year-old gentleman with a history of cardiomyopathy, history of ICD implantation in 2005. The patient had a generator change in 2011. The patient has been followed by Dr. Jessica. The patient's ICD reached elective replacement indicator and generator change was recommended. DESCRIPTION OF PROCEDURE: The patient was brought to the procedure room in a fasting state. Informed consent had been obtained prior to the procedure. All labs were reviewed. The patient's left deltopectoral area was cleaned and draped in the usual fashion. 1% lidocaine was used for local anesthesia. A 4.5- cm incision was made along the previous incision line and blunt dissection was carried down to the fiber sheath. The fiber sheath was opened and the ICD was removed from the pocket. The explanted ICD is a Medtronic model [id number], serial number [id number]. The pocket was flushed with normal saline. A new generator was attached appropriately to the atrial and ventricular leads. The new generator is a Medtronic model [id number], serial number [id number]. The device was placed in the pocket. The surgical incision was closed in three layers. The patient tolerated the procedure well with no complications. The ICD was interrogated before sterile field was broken and noted to be functioning normally. The patient will follow up in 1 week. [id number]/[facility] #: [id number] [facility]
== END | disposition home or self-care (01) ==
LOC: CHICATH 11:37
PROVIDERS: ATTEND Specialist
DX: Z45.02 Encounter for adjustment and management of automatic implantable cardiac defibrillator (principal); I42.9 Cardiomyopathy, unspecified; I50.20 Unspecified systolic (congestive) heart failure; I48.2 Chronic atrial fibrillation; Z79.01 Long term (current) use of anticoagulants; Z79.899 Other long term (current) drug therapy; E78.5 Hyperlipidemia, unspecified
CPT/HCPCS: 33263; 88300; 99156; 99157; A9270-GY; C1721; J2250; J3010

== ENCOUNTER 2021-06-09 12:30 | Inpatient (IN) ==
[2021-06-09 14:30] LABS: Hematocrit 40 % (42-52); Hemoglobin 13.3 g/dL (14.0-18.0); Mean Corpuscular HGB Conc 33 g/dL (31-36); Mean Corpuscular Hemoglobin 32 pg (27-31); Mean Corpuscular Volume 96 fL (80-94); Mean Platelet Volume 7.7 fL (7.4-10.4); Platelet Count 166 10^3/uL (150-450); Red Blood Count 4.22 10^6 /uL (4.18-5.48); Red Cell Distribution Width 14 % (10-15); White Blood Count 21.2 10^3/uL (3.5-10.8)
[2021-06-09 14:55] LABS: ABS Lymphocytes 0.5 10^3/ul (1.0-4.8); ABS Monocytes 1.5 10^3/ul (0-0.8); ABS Neutrophils 19.2 10^3/ul (1.5-7.7); Lymphocyte % 2.4 %
[2021-06-09 15:11] LABS: Albumin 3.9 g/dL (3.2-5.2); Albumin/Globulin Ratio 1.6 (1-3); Calcium 8.9 mg/dL (8.6-10.3); Globulin 2.4 g/dL (2-4); Magnesium 1.6 mg/dL (1.9-2.7); Potassium 4.5 mmol/L (3.5-5.0); Total Bilirubin 1.2 mg/dL (0.2-1.0); Total Protein 6.3 g/dL (6.4-8.9); eGFR CKD-EPI 35.4 (>60)
[2021-06-09] MEDS ORDERED: Lactated Ringers 1000 ml BAG 1,000 ML IV ONE ×2 (15:56→16:48)
[2021-06-09] MEDS ORDERED: cefTRIAXone 2 GM ADDV.VIAL 2 GM in NS 0.9% 100 ml BAG 100 ML IVPB ONE (16:49)
[2021-06-09] MEDS ORDERED: Morphine 4 MG/ML VIAL (1 ml) IV ONE (18:00)
[2021-06-09] MEDS ORDERED: Ondansetron 4 mg VIAL 2 MG/ML 2 ml VIAL IV PRN (18:11)
[2021-06-09] MEDS ORDERED: NS 0.9% 1000 ml BAG 1,000 ML IV SCH (18:15)
[2021-06-09] MEDS ORDERED: Magnesium Sulfate 2 gm BAG 2 GM/50 ML BAG IVPB ONE (18:25)
[2021-06-09 19:26] LABS: Urine Appearance Turbid; Urine Bilirubin Negative (Negative); Urine Blood 2+ (Negative); Urine Color Amber; Urine Glucose Negative (Negative); Urine Ketones Negative (Negative); Urine Nitrite Positive (Negative); Urine Protein 2+(100 mg/dL) (Negative); Urine Specific Gravity 1.018 (1.002-1.030); Urine Urobilinogen Negative (Negative)
[2021-06-09 19:31] LABS: Urine Bacteria Absent (Absent); Urine Red Blood Cell 3+(>10/hpf) (Absent); Urine White Blood Cell 3+(>20/hpf) (Absent)
[2021-06-09 21:46] LABS: Digoxin 0.9 ng/ml (0.8-2.0)
[2021-06-09] MEDS: Simvastatin 20 mg TAB (NF) PO SCH (23:01)
[2021-06-10 06:24] LABS: ABS Eosinophils 0.1 10^3/ul (0-0.6); ABS Lymphocytes 0.8 10^3/ul (1.0-4.8); ABS Monocytes 1.2 10^3/ul (0-0.8); ABS Neutrophils 12.9 10^3/ul (1.5-7.7); Eosinophil % 0.9 %; Hematocrit 37 % (42-52); Hemoglobin 12.4 g/dL (14.0-18.0); Lymphocyte % 5.6 %; Mean Corpuscular HGB Conc 34 g/dL (31-36); Mean Corpuscular Hemoglobin 32 pg (27-31); Mean Corpuscular Volume 95 fL (80-94); Mean Platelet Volume 7.9 fL (7.4-10.4); Platelet Count 143 10^3/uL (150-450); Red Blood Count 3.86 10^6 /uL (4.18-5.48); Red Cell Distribution Width 14 % (10-15); White Blood Count 15.1 10^3/uL (3.5-10.8)
[2021-06-10 06:33] LABS: INR 1.43 (0.86-1.15)
[2021-06-10 06:46] LABS: Calcium 8.7 mg/dL (8.6-10.3); Magnesium 1.9 mg/dL (1.9-2.7); eGFR CKD-EPI 50.3 (>60)
[2021-06-10] MEDS ORDERED: Metoprolol Tartrate 5 mg VIAL 5 ml VIAL (1 mg/ml) ONE (10:27)
[2021-06-10] MEDS ORDERED: Metoprolol Tartrate 5 mg VIAL 5 ml VIAL (1 mg/ml) IV ONE (10:56)
[2021-06-10] MEDS: CMCS:Dabigatran 150 mg CAP (NF) PO SCH ×2 (11:20→20:51)
[2021-06-10] MEDS ORDERED: cefTRIAXone 1 gm/50 mL NS BAG 1 GM/50 ML BAG IVPB SCH (18:00)
[2021-06-10] MEDS ORDERED: cefTRIAXone 2 GM ADDV.VIAL 2 GM in NS 0.9% 100 ml BAG 100 ML IV SCH (18:00)
[2021-06-10] MEDS: Simvastatin 20 mg TAB (NF) PO SCH (20:50)
[2021-06-11 06:09] LABS: ABS Basophils 0.1 10^3/ul (0-0.2); ABS Eosinophils 0.4 10^3/ul (0-0.6); ABS Lymphocytes 1.2 10^3/ul (1.0-4.8); ABS Monocytes 0.9 10^3/ul (0-0.8); ABS Neutrophils 6.6 10^3/ul (1.5-7.7); Eosinophil % 4.2 %; Hematocrit 34 % (42-52); Hemoglobin 11.8 g/dL (14.0-18.0); Lymphocyte % 13.2 %; Mean Corpuscular HGB Conc 34 g/dL (31-36); Mean Corpuscular Hemoglobin 32 pg (27-31); Mean Corpuscular Volume 94 fL (80-94); Mean Platelet Volume 8.1 fL (7.4-10.4); Platelet Count 149 10^3/uL (150-450); Red Blood Count 3.66 10^6 /uL (4.18-5.48); Red Cell Distribution Width 14 % (10-15); White Blood Count 9.1 10^3/uL (3.5-10.8)
[2021-06-11 06:39] LABS: Albumin 3.1 g/dL (3.2-5.2); Albumin/Globulin Ratio 1.2 (1-3); Calcium 8.4 mg/dL (8.6-10.3); Globulin 2.5 g/dL (2-4); Total Bilirubin 0.4 mg/dL (0.2-1.0); Total Protein 5.6 g/dL (6.4-8.9); eGFR CKD-EPI 61.8 (>60)
[2021-06-11] MEDS: CMCS:Dabigatran 150 mg CAP (NF) PO SCH ×2 (07:54→20:37)
[2021-06-11] MEDS ORDERED: ceFAZolin VIAL 2 GM in NS 0.9% 100 ml BAG 100 ML IVPB SCH (10:00)
[2021-06-11] MEDS ORDERED: ceFAZolin 2 GM PREMIX 2 GM/50 ML BAG IVPB SCH (10:30)
[2021-06-11] MEDS: ceFAZolin 2 GM PREMIX 2 GM/50 ML BAG IVPB SCH ×2 (11:00→18:02)
[2021-06-11] MEDS: Simvastatin 20 mg TAB (NF) PO SCH (20:38)
[2021-06-12] MEDS: ceFAZolin 2 GM PREMIX 2 GM/50 ML BAG IVPB SCH ×3 (02:27→17:53)
[2021-06-12 06:52] LABS: ABS Basophils 0.1 10^3/ul (0-0.2); ABS Eosinophils 0.4 10^3/ul (0-0.6); ABS Lymphocytes 1.3 10^3/ul (1.0-4.8); ABS Monocytes 0.7 10^3/ul (0-0.8); ABS Neutrophils 4.6 10^3/ul (1.5-7.7); Eosinophil % 5.3 %; Hematocrit 34 % (42-52); Hemoglobin 11.7 g/dL (14.0-18.0); Lymphocyte % 18.3 %; Mean Corpuscular HGB Conc 34 g/dL (31-36); Mean Corpuscular Hemoglobin 32 pg (27-31); Mean Corpuscular Volume 94 fL (80-94); Mean Platelet Volume 7.8 fL (7.4-10.4); Nucleated Red Blood Cells % 0.1; Platelet Count 168 10^3/uL (150-450); Red Blood Count 3.63 10^6 /uL (4.18-5.48); Red Cell Distribution Width 13 % (10-15); White Blood Count 7.1 10^3/uL (3.5-10.8)
[2021-06-12 07:18] LABS: Calcium 8.5 mg/dL (8.6-10.3); eGFR CKD-EPI 66.4 (>60)
[2021-06-12] MEDS: CMCS:Dabigatran 150 mg CAP (NF) PO SCH ×2 (09:06→21:21)
[2021-06-12] MEDS ORDERED: Naloxone 0.4 mg VIAL 0.4 mg/ml 1 ml VIAL ONE (12:50)
[2021-06-12] MEDS ORDERED: fentaNYL 100 mcg/2 ml 50 MCG/ML VIAL ONE (12:50)
[2021-06-12] MEDS ORDERED: Flumazenil 0.5 mg/5 ml 0.1 MG/ML 5 ml VIAL ONE (12:50)
[2021-06-12] MEDS ORDERED: Midazolam 5 mg/5 ml VIAL 1 mg/ml 5 ml VIAL (5 mg) ONE (12:50)
[2021-06-12] MEDS: Simvastatin 20 mg TAB (NF) PO SCH (21:23)
[2021-06-13] MEDS: ceFAZolin 2 GM PREMIX 2 GM/50 ML BAG IVPB SCH ×3 (04:06→18:11)
[2021-06-13] MEDS: CMCS:Dabigatran 150 mg CAP (NF) PO SCH ×2 (09:12→21:07)
[2021-06-13] MEDS: Simvastatin 20 mg TAB (NF) PO SCH (21:07)
[2021-06-14] MEDS: ceFAZolin 2 GM PREMIX 2 GM/50 ML BAG IVPB SCH ×3 (03:05→18:35)
[2021-06-14 07:53] LABS: ABS Lymphocytes 0.7 10^3/ul (1.0-4.8); ABS Monocytes 0.4 10^3/ul (0-0.8); ABS Neutrophils 8.2 10^3/ul (1.5-7.7); Hematocrit 36 % (42-52); Hemoglobin 12.3 g/dL (14.0-18.0); Lymphocyte % 7.2 %; Mean Corpuscular HGB Conc 34 g/dL (31-36); Mean Corpuscular Hemoglobin 32 pg (27-31); Mean Corpuscular Volume 94 fL (80-94); Mean Platelet Volume 7.6 fL (7.4-10.4); Platelet Count 216 10^3/uL (150-450); Red Blood Count 3.82 10^6 /uL (4.18-5.48); Red Cell Distribution Width 14 % (10-15); White Blood Count 9.3 10^3/uL (3.5-10.8)
[2021-06-14 08:51] LABS: Calcium 8.9 mg/dL (8.6-10.3); Potassium 4.9 mmol/L (3.5-5.0); eGFR CKD-EPI 63.1 (>60)
[2021-06-14] MEDS: CMCS:Dabigatran 150 mg CAP (NF) PO SCH ×2 (09:26→20:57)
[2021-06-14] MEDS ORDERED: Calcium Carb (TUMS) 500 mg CHEW TAB PO ONE (16:00)
[2021-06-14] MEDS: Simvastatin 20 mg TAB (NF) PO SCH (20:57)
[2021-06-14] MEDS ORDERED: Calcium Carb (TUMS) 500 mg CHEW TAB PO PRN (22:45)
[2021-06-15] MEDS: ceFAZolin 2 GM PREMIX 2 GM/50 ML BAG IVPB SCH ×3 (02:51→17:54)
[2021-06-15] MEDS: CMC:Epleronone 25 mg TAB (NF) PO SCH (09:44)
[2021-06-15] MEDS: CMCS:Dabigatran 150 mg CAP (NF) PO SCH ×2 (09:44→20:25)
[2021-06-15 18:52] LABS: Ferritin 197.3 ng/mL (24-336)
[2021-06-15] MEDS: Simvastatin 20 mg TAB (NF) PO SCH (20:25)
[2021-06-16] MEDS: ceFAZolin 2 GM PREMIX 2 GM/50 ML BAG IVPB SCH ×2 (04:29→11:58)
[2021-06-16] MEDS: CMC:Epleronone 25 mg TAB (NF) PO SCH (11:46)
[2021-06-16] MEDS: CMCS:Dabigatran 150 mg CAP (NF) PO SCH (11:46)
[2021-06-16 12:06] VITALS: BP 131/78
== END 2021-06-16 15:55 | disposition home or self-care (01) | DRG 872 ==
LOC: EDHOLD 12:30 → ED 12:30 → SSU 20:52 → SUATTDRO 06-10 11:30
PROVIDERS: ADMIT Student in an Organized Health Care Education/Training Program; ATTEND Hospitalist

== ENCOUNTER 2022-10-24 17:51 | Inpatient (IN) ==
[2022-10-24] MEDS ORDERED: Morphine 2 MG/ML SYRINGE IV ONE ×2 (18:24→21:24)
[2022-10-24 18:28] LABS: ABS Basophils 0.1 10^3/uL (0.0-0.1); ABS Eosinophils 0.5 10^3/uL (0.0-0.5); ABS Lymphocytes 1.2 10^3/uL (1.0-4.8); ABS Monocytes 0.7 10^3/uL (0.0-1.1); ABS Neutrophils 4.8 10^3/uL (1.5-7.6); Eosinophil % 6.9 %; Hematocrit 42.2 % (38-53); Hemoglobin 14.6 g/dL (13.2-16.3); Lymphocyte % 16.2 %; Mean Corpuscular Hemoglobin 32.6 pg (27-33); Mean Corpuscular Hgb Conc 34.6 g/dL (31-36); Mean Corpuscular Volume 94.2 fL (80-97); Mean Platelet Volume 7.5 fL (7.5-11.2); Platelet Count 211 10^3/uL (150-450); Red Blood Count 4.48 10^6/uL (4.06-5.63); Red Cell Distribution Width 13.8 % (12-17); White Blood Count 7.3 10^3/uL (3.6-10.2)
[2022-10-24 18:38] LABS: INR 1.42 (0.88-1.18)
[2022-10-24 18:48] LABS: Albumin/Globulin Ratio 1.3 (1-3); Calcium 9.7 mg/dL (8.6-10.3); Creatinine, Serum 1.32 mg/dL (0.67-1.17); Globulin 3.1 g/dL (2-4); Potassium 4.2 mmol/L (3.5-5.0); Total Bilirubin 0.6 mg/dL (0.2-1.0); Total Protein 7.1 g/dL (6.4-8.9); eGFR CKD-EPI 55.6 (>60)
[2022-10-24 20:11] LABS: Urine Appearance Clear; Urine Bilirubin Negative (Negative); Urine Blood 1+ (Negative); Urine Color Yellow; Urine Glucose Negative (Negative); Urine Ketones Negative (Negative); Urine Nitrite Negative (Negative); Urine Protein 2+(100 mg/dL) (Negative); Urine Specific Gravity 1.012 (1.002-1.030); Urine Urobilinogen Negative (Negative)
[2022-10-24 20:18] LABS: Urine Bacteria Absent (Absent); Urine Red Blood Cell 3+(>10/hpf) (Absent); Urine White Blood Cell Trace(0-5/hpf) (Absent)
[2022-10-24] MEDS ORDERED: Iodixanol (CONTRAST) 320 MG/ML 100 ML SDV IV ONE (20:50)
[2022-10-24] MEDS ORDERED: Lidocaine PATCH 5% PATCH TRANSDERM ONE (21:35)
[2022-10-24] MEDS ORDERED: Acetaminophen IV 1 GM/100ML 1,000 MG/100 ML BAG IV ONE (22:06)
[2022-10-25 09:38] LABS: TSH Ultra Thyroid Stim Horm 9.44 mcIU/mL (0.34-5.60)
[2022-10-25 13:06] LABS: Free T3 3.2 pg/mL (2.5-3.9)
[2022-10-25 13:07] LABS: Free T4 0.99 ng/dL (0.61-1.12)
[2022-10-25] MEDS: CMCS: Epleronone 25 mg TAB (NF) PO SCH (14:49)
[2022-10-25] MEDS: CMCS: Dabigatran 150 mg CAP (NF) PO SCH ×2 (14:50→20:47)
[2022-10-25] MEDS: HYDROcodone/ACETAMIN 5/325 mg TAB PO PRN (20:48)
[2022-10-26] MEDS: HYDROcodone/ACETAMIN 5/325 mg TAB PO PRN ×2 (05:37→15:47)
[2022-10-26] MEDS: Multivitamins/Minerals TAB PO SCH (08:24)
[2022-10-26] MEDS: CMCS: Dabigatran 150 mg CAP (NF) PO SCH ×2 (08:24→20:24)
[2022-10-26] MEDS: CMCS: Epleronone 25 mg TAB (NF) PO SCH (08:25)
[2022-10-26] MEDS: Lidocaine PATCH 5% PATCH TRANSDERM SCH (08:29)
[2022-10-26] MEDS: Polyethylene Glycol 3350 17 GM PACKET PO PRN (20:23)
[2022-10-27] MEDS: Morphine 2 MG/ML SYRINGE IV PRN ×2 (01:00→06:11)
[2022-10-27] MEDS: CMCS: Dabigatran 150 mg CAP (NF) PO SCH ×2 (08:58→20:04)
[2022-10-27] MEDS: CMCS: Epleronone 25 mg TAB (NF) PO SCH (08:58)
[2022-10-27] MEDS: Lidocaine PATCH 5% PATCH TRANSDERM SCH (09:00)
[2022-10-27] MEDS: Multivitamins/Minerals TAB PO SCH (09:00)
[2022-10-27] MEDS: Acetaminophen IV 1 GM/100ML 1,000 MG/100 ML BAG IV SCH ×2 (12:06→20:00)
[2022-10-28] MEDS: Morphine 2 MG/ML SYRINGE IV PRN (00:30)
[2022-10-28] MEDS: Acetaminophen IV 1 GM/100ML 1,000 MG/100 ML BAG IV SCH ×3 (03:32→19:58)
[2022-10-28] MEDS: CMCS: Dabigatran 150 mg CAP (NF) PO SCH ×2 (09:48→20:04)
[2022-10-28] MEDS: Lidocaine PATCH 5% PATCH TRANSDERM SCH (09:48)
[2022-10-28] MEDS: Multivitamins/Minerals TAB PO SCH (09:49)
[2022-10-28] MEDS: CMCS: Epleronone 25 mg TAB (NF) PO SCH (09:49)
[2022-10-28] MEDS: Polyethylene Glycol 3350 17 GM PACKET PO PRN (20:16)
[2022-10-28] MEDS ORDERED: Dextrose 50% Syringe 50 ml 25 GM/50 ML SYRINGE IV PUSH PRN (20:56)
[2022-10-29] MEDS: Acetaminophen IV 1 GM/100ML 1,000 MG/100 ML BAG IV SCH (03:56)
[2022-10-29] MEDS: Polyethylene Glycol 3350 17 GM PACKET PO PRN (05:43)
[2022-10-29] MEDS: Morphine 2 MG/ML SYRINGE IV PRN ×2 (08:20→20:54)
[2022-10-29] MEDS: Multivitamins/Minerals TAB PO SCH (08:23)
[2022-10-29] MEDS: CMCS: Dabigatran 150 mg CAP (NF) PO SCH ×2 (08:23→20:52)
[2022-10-29] MEDS: Lidocaine PATCH 5% PATCH TRANSDERM SCH (08:23)
[2022-10-29] MEDS: CMCS: Epleronone 25 mg TAB (NF) PO SCH (08:23)
[2022-10-29] MEDS ORDERED: Magnesium Hydroxide LIQ 30 ML UDC PO PRN (11:10)
[2022-10-29] MEDS ORDERED: Senna TAB 8.6 mg TAB PO PRN (11:10)
[2022-10-29] MEDS ORDERED: Epleronone 25 mg TAB (NF) PO ONE (11:34)
[2022-10-30 03:02] VITALS: BP 123/78
[2022-10-30] MEDS: CMCS: Dabigatran 150 mg CAP (NF) PO SCH (08:48)
[2022-10-30] MEDS: Multivitamins/Minerals TAB PO SCH (08:49)
[2022-10-30] MEDS: Lidocaine PATCH 5% PATCH TRANSDERM SCH (08:51)
[2022-10-30] MEDS ORDERED: Epleronone 25 mg TAB (NF) PO SCH (09:00)
== END 2022-10-30 10:15 | DRG 552 ==
LOC: EDHOLD 17:51 → ED 17:51 → SUATTDRO 10-25 08:42 → MED 10-25 10:38
PROVIDERS: ADMIT Internal Medicine; ATTEND Student in an Organized Health Care Education/Training Program

== ENCOUNTER 2024-04-15 13:16 | Inpatient (IN) ==
[2024-04-15 14:01] LABS: ABS Basophils 0.1 10^3/uL (0.0-0.1); ABS Eosinophils 0.2 10^3/uL (0.0-0.5); ABS Lymphocytes 0.8 10^3/uL (1.0-4.8); ABS Monocytes 0.7 10^3/uL (0.0-1.1); ABS Neutrophils 4.8 10^3/uL (1.5-7.6); Eosinophil % 2.9 %; Hematocrit 31.5 % (38-53); Hemoglobin 10.8 g/dL (13.2-16.3); Lymphocyte % 12.4 %; Mean Corpuscular Hemoglobin 32.3 pg (27-33); Mean Corpuscular Hgb Conc 34.2 g/dL (31-36); Mean Corpuscular Volume 94.4 fL (80-97); Mean Platelet Volume 7.3 fL (7.5-11.2); Platelet Count 213 10^3/uL (150-450); Red Blood Count 3.34 10^6/uL (4.06-5.63); Red Cell Distribution Width 13.6 % (12-17); White Blood Count 6.6 10^3/uL (3.6-10.2)
[2024-04-15 14:11] LABS: Activated Partial Thrombo Time 68.6 seconds (26.0-38.0); INR 1.71 (0.85-1.14)
[2024-04-15] MEDS: Morphine 4 MG/ML VIAL (1 ml) IV ONE ×2 (14:44→15:47)
[2024-04-15 14:49] LABS: Urine Bacteria Absent /HPF (Absent); Urine Red Blood Cell 3+(>10/hpf) /HPF (0-Trace); Urine White Blood Cell Absent /HPF (0-Trace)
[2024-04-15 14:59] LABS: Urine Appearance Extra Turbid; Urine Color Dark-Red; Urine Specific Gravity 1.013 (1.002-1.030)
[2024-04-15 15:46] LABS: Albumin 3.8 g/dL (3.5-5.7); Albumin/Globulin Ratio 1.5 (1-3); C Reactive Protein 4.55 mg/L (<8.01); Calcium 9.5 mg/dL (8.6-10.3); Creatinine, Serum 2.26 mg/dL (0.67-1.17); Globulin 2.6 g/dL (2-4); Potassium 4.9 mmol/L (3.5-5.0); Total Bilirubin 0.6 mg/dL (0.2-1.0); Total Protein 6.4 g/dL (6.4-8.9)
[2024-04-15] MEDS: Lidocaine 4% GEL 10 GM TUBE TOPICAL ONE (16:22)
[2024-04-15] MEDS ORDERED: Lidocaine 2% JELLY 6 ML Topical TOPICAL ONE (16:38)
[2024-04-15] MEDS: Lidocaine 2% JELLY 6 ML Topical TOPICAL ONE (16:42)
[2024-04-15] MEDS: NS 0.9% 500 ml BAG 500 ML IV ONE (17:11)
[2024-04-15 17:37] LABS: Hematocrit 30.4 % (38-53); Hemoglobin 10.5 g/dL (13.2-16.3)
[2024-04-16 06:21] LABS: ABS Basophils 0.1 10^3/uL (0.0-0.1); ABS Eosinophils 0.2 10^3/uL (0.0-0.5); ABS Monocytes 1.1 10^3/uL (0.0-1.1); ABS Neutrophils 5.9 10^3/uL (1.5-7.6); Eosinophil % 2.3 %; Hematocrit 27.9 % (38-53); Hemoglobin 9.6 g/dL (13.2-16.3); Lymphocyte % 12.6 %; Mean Corpuscular Hemoglobin 32.5 pg (27-33); Mean Corpuscular Hgb Conc 34.5 g/dL (31-36); Mean Corpuscular Volume 94.3 fL (80-97); Mean Platelet Volume 7.5 fL (7.5-11.2); Nucleated Red Blood Cells % 0.1 %/100WBC (0.0-0.8); Platelet Count 181 10^3/uL (150-450); Red Blood Count 2.96 10^6/uL (4.06-5.63); Red Cell Distribution Width 13.7 % (12-17); White Blood Count 8.2 10^3/uL (3.6-10.2)
[2024-04-16 07:46] LABS: Ferritin 65.6 ng/mL (24-336)
[2024-04-16 08:33] LABS: Calcium 8.5 mg/dL (8.6-10.3); Creatinine, Serum 2.08 mg/dL (0.67-1.17); Magnesium 2.1 mg/dL (1.9-2.7); Potassium 4.4 mmol/L (3.5-5.0)
[2024-04-16] MEDS: Heparin 5000 UNITS/ML 1 mL VIAL SUBCUT SCH (14:35)
[2024-04-16] MEDS ORDERED: Simvastatin 20 mg TAB (NF) PO SCH (21:00)
[2024-04-16] MEDS: Calcium Carb (TUMS) 500 mg CHEW TAB PO PRN (21:36)
[2024-04-17 05:50] LABS: ABS Basophils 0.1 10^3/uL (0.0-0.1); ABS Eosinophils 0.3 10^3/uL (0.0-0.5); ABS Lymphocytes 1.3 10^3/uL (1.0-4.8); ABS Neutrophils 4.5 10^3/uL (1.5-7.6); Eosinophil % 3.9 %; Hematocrit 25.9 % (38-53); Hemoglobin 9.1 g/dL (13.2-16.3); Lymphocyte % 17.7 %; Mean Corpuscular Hemoglobin 33.2 pg (27-33); Mean Corpuscular Hgb Conc 35.2 g/dL (31-36); Mean Corpuscular Volume 94.2 fL (80-97); Mean Platelet Volume 7.5 fL (7.5-11.2); Platelet Count 167 10^3/uL (150-450); Red Blood Count 2.75 10^6/uL (4.06-5.63); Red Cell Distribution Width 13.3 % (12-17); White Blood Count 7.2 10^3/uL (3.6-10.2)
[2024-04-17 06:20] LABS: Calcium 8.4 mg/dL (8.6-10.3); Creatinine, Serum 1.69 mg/dL (0.67-1.17); Magnesium 1.9 mg/dL (1.9-2.7)
[2024-04-18] MEDS: Polyethylene Glycol 3350 17 GM PACKET PO SCH (05:29)
[2024-04-18 09:11] LABS: ABS Basophils 0.1 10^3/uL (0.0-0.1); ABS Eosinophils 0.3 10^3/uL (0.0-0.5); ABS Lymphocytes 1.4 10^3/uL (1.0-4.8); ABS Monocytes 0.9 10^3/uL (0.0-1.1); ABS Neutrophils 4.7 10^3/uL (1.5-7.6); Eosinophil % 4.6 %; Hematocrit 29.7 % (38-53); Hemoglobin 10.4 g/dL (13.2-16.3); Lymphocyte % 18.7 %; Mean Corpuscular Hemoglobin 33.1 pg (27-33); Mean Corpuscular Volume 94.6 fL (80-97); Mean Platelet Volume 7.5 fL (7.5-11.2); Platelet Count 198 10^3/uL (150-450); Red Blood Count 3.14 10^6/uL (4.06-5.63); Red Cell Distribution Width 13.5 % (12-17); White Blood Count 7.5 10^3/uL (3.6-10.2)
[2024-04-18] MEDS: Ferric Gluconate IV 250 MG in NS 0.9% 250 ml 200 ML IVPB SCH (09:17)
[2024-04-18 09:43] LABS: Calcium 8.5 mg/dL (8.6-10.3); Creatinine, Serum 1.45 mg/dL (0.67-1.17); Potassium 4.3 mmol/L (3.5-5.0); eGFR CKD-EPI 49.3 (>60)
[2024-04-18] MEDS ORDERED: Naloxone 0.4 mg VIAL 0.4 mg/ml 1 ml VIAL IV PRN ×2 (12:35→12:37)
[2024-04-18] MEDS ORDERED: fentaNYL 100 mcg/2 ml 50 MCG/ML VIAL IV PRN (12:37)
[2024-04-19] MEDS ORDERED: Lactated Ringers 1000 ml BAG 1,000 ML IV SCH (06:00)
[2024-04-19] MEDS: BELLADONNA/OPIUM Rectal SUPP 1 EACH SUPP PR ONE (16:24)
[2024-04-19] MEDS: Buffered Lidocaine 1% SYRIN 1 ml INTRADERM ONE (16:24)
[2024-04-19] MEDS: cefTRIAXone 1 gm/50 mL D5W 1 GM/50 ML BAG IV ONE (16:24)
[2024-04-19 16:59] LABS: Calcium 8.7 mg/dL (8.6-10.3); Creatinine, Serum 1.36 mg/dL (0.67-1.17); Potassium 5.3 mmol/L (3.5-5.0); eGFR CKD-EPI 53.3 (>60)
[2024-04-19 17:52] LABS: Digoxin 0.3 ng/ml (0.8-2.0)
[2024-04-19] MEDS: HYDROmorphone 0.5 MG/0.5 ML SYRINGE IV SLOW PU ONE (21:33)
[2024-04-19] MEDS ORDERED: fentaNYL 100 mcg/2 ml 50 MCG/ML VIAL IV SLOW PU PRN (21:34)
[2024-04-20 06:40] LABS: ABS Eosinophils 0.3 10^3/uL (0.0-0.5); ABS Lymphocytes 0.9 10^3/uL (1.0-4.8); ABS Neutrophils 5.2 10^3/uL (1.5-7.6); Hematocrit 28.6 % (38-53); Hemoglobin 9.9 g/dL (13.2-16.3); Lymphocyte % 11.9 %; Mean Corpuscular Hgb Conc 34.7 g/dL (31-36); Mean Corpuscular Volume 95.1 fL (80-97); Mean Platelet Volume 7.6 fL (7.5-11.2); Platelet Count 207 10^3/uL (150-450); Red Cell Distribution Width 13.4 % (12-17); White Blood Count 7.4 10^3/uL (3.6-10.2)
[2024-04-20 07:45] LABS: Calcium 8.5 mg/dL (8.6-10.3); Creatinine, Serum 1.28 mg/dL (0.67-1.17); Potassium 4.5 mmol/L (3.5-5.0); eGFR CKD-EPI 57.3 (>60)
[2024-04-20] MEDS: CMC:Dabigatran 150 mg CAP (NF) PO SCH (09:04)
[2024-04-21 05:43] LABS: ABS Basophils 0.1 10^3/uL (0.0-0.1); ABS Eosinophils 0.5 10^3/uL (0.0-0.5); ABS Lymphocytes 1.3 10^3/uL (1.0-4.8); ABS Monocytes 1.1 10^3/uL (0.0-1.1); ABS Neutrophils 4.8 10^3/uL (1.5-7.6); Eosinophil % 5.8 %; Hematocrit 26.7 % (38-53); Hemoglobin 9.4 g/dL (13.2-16.3); Lymphocyte % 16.7 %; Mean Corpuscular Hemoglobin 33.5 pg (27-33); Mean Corpuscular Hgb Conc 35.2 g/dL (31-36); Mean Corpuscular Volume 95.3 fL (80-97); Mean Platelet Volume 7.3 fL (7.5-11.2); Platelet Count 203 10^3/uL (150-450); Red Blood Count 2.81 10^6/uL (4.06-5.63); Red Cell Distribution Width 13.6 % (12-17); White Blood Count 7.8 10^3/uL (3.6-10.2)
[2024-04-21 06:04] LABS: Calcium 8.1 mg/dL (8.6-10.3); Creatinine, Serum 1.33 mg/dL (0.67-1.17); Magnesium 1.6 mg/dL (1.9-2.7); Potassium 4.3 mmol/L (3.5-5.0); eGFR CKD-EPI 54.7 (>60)
[2024-04-21] MEDS: Magnesium Sulfate 2 gm BAG 2 GM/50 ML BAG IVPB ONE (09:18)
[2024-04-22 06:42] LABS: ABS Basophils 0.1 10^3/uL (0.0-0.1); ABS Eosinophils 0.4 10^3/uL (0.0-0.5); ABS Monocytes 1.1 10^3/uL (0.0-1.1); Eosinophil % 5.9 %; Hematocrit 28.5 % (38-53); Hemoglobin 10.1 g/dL (13.2-16.3); Lymphocyte % 13.2 %; Mean Corpuscular Hemoglobin 33.6 pg (27-33); Mean Corpuscular Hgb Conc 35.3 g/dL (31-36); Mean Corpuscular Volume 95.2 fL (80-97); Mean Platelet Volume 7.2 fL (7.5-11.2); Platelet Count 214 10^3/uL (150-450); Red Cell Distribution Width 13.7 % (12-17); White Blood Count 7.6 10^3/uL (3.6-10.2)
[2024-04-22 06:51] LABS: Calcium 8.6 mg/dL (8.6-10.3); Creatinine, Serum 1.2 mg/dL (0.67-1.17); Magnesium 1.9 mg/dL (1.9-2.7); Potassium 4.2 mmol/L (3.5-5.0); eGFR CKD-EPI 61.9 (>60)
[2024-04-22] MEDS: Erythromycin OPTH OINT APPLIC OINT RIGHT EYE SCH (15:41)
[2024-04-23 10:48] LABS: ABS Basophils 0.1 10^3/uL (0.0-0.1); ABS Eosinophils 0.4 10^3/uL (0.0-0.5); ABS Neutrophils 5.5 10^3/uL (1.5-7.6); Eosinophil % 5.3 %; Hematocrit 28.9 % (38-53); Hemoglobin 9.8 g/dL (13.2-16.3); Lymphocyte % 12.1 %; Mean Corpuscular Hemoglobin 32.6 pg (27-33); Mean Corpuscular Hgb Conc 34.1 g/dL (31-36); Mean Corpuscular Volume 95.5 fL (80-97); Mean Platelet Volume 7.3 fL (7.5-11.2); Nucleated Red Blood Cells % 0.1 %/100WBC (0.0-0.8); Platelet Count 232 10^3/uL (150-450); Red Blood Count 3.02 10^6/uL (4.06-5.63); Red Cell Distribution Width 13.8 % (12-17); White Blood Count 7.9 10^3/uL (3.6-10.2)
[2024-04-23 11:05] LABS: Calcium 8.7 mg/dL (8.6-10.3); Creatinine, Serum 1.39 mg/dL (0.67-1.17); Potassium 4.3 mmol/L (3.5-5.0); eGFR CKD-EPI 51.9 (>60)
[2024-04-24 06:24] LABS: ABS Basophils 0.1 10^3/uL (0.0-0.1); ABS Eosinophils 0.4 10^3/uL (0.0-0.5); ABS Lymphocytes 0.9 10^3/uL (1.0-4.8); ABS Monocytes 1.1 10^3/uL (0.0-1.1); ABS Neutrophils 6.6 10^3/uL (1.5-7.6); Eosinophil % 4.2 %; Hematocrit 27.1 % (38-53); Hemoglobin 9.4 g/dL (13.2-16.3); Lymphocyte % 9.9 %; Mean Corpuscular Hemoglobin 33.1 pg (27-33); Mean Corpuscular Hgb Conc 34.7 g/dL (31-36); Mean Corpuscular Volume 95.6 fL (80-97); Platelet Count 238 10^3/uL (150-450); Red Blood Count 2.83 10^6/uL (4.06-5.63); Red Cell Distribution Width 13.9 % (12-17); White Blood Count 9.1 10^3/uL (3.6-10.2)
[2024-04-24 07:10] LABS: Calcium 8.4 mg/dL (8.6-10.3); Creatinine, Serum 1.4 mg/dL (0.67-1.17); Magnesium 1.7 mg/dL (1.9-2.7); Potassium 4.4 mmol/L (3.5-5.0); eGFR CKD-EPI 51.4 (>60)
[2024-04-24] MEDS: Magnesium Sulfate 2 gm BAG 2 GM/50 ML BAG IVPB ONE (09:09)
[2024-04-25 15:39] LABS: INR 1.26 (0.85-1.14)
[2024-04-26] MEDS: Dabigatran 150 mg CAP (NF) PO SCH (09:05)
[2024-04-26 12:55] LABS: ABS Basophils 0.1 10^3/uL (0.0-0.1); ABS Eosinophils 0.4 10^3/uL (0.0-0.5); ABS Lymphocytes 0.8 10^3/uL (1.0-4.8); ABS Monocytes 0.8 10^3/uL (0.0-1.1); ABS Neutrophils 5.2 10^3/uL (1.5-7.6); Eosinophil % 5.2 %; Hemoglobin 9.9 g/dL (13.2-16.3); Lymphocyte % 10.7 %; Mean Corpuscular Hemoglobin 34.1 pg (27-33); Mean Corpuscular Hgb Conc 35.4 g/dL (31-36); Mean Corpuscular Volume 96.3 fL (80-97); Mean Platelet Volume 7.1 fL (7.5-11.2); Nucleated Red Blood Cells % 0.1 %/100WBC (0.0-0.8); Platelet Count 241 10^3/uL (150-450); Red Blood Count 2.91 10^6/uL (4.06-5.63); Red Cell Distribution Width 14.2 % (12-17); White Blood Count 7.2 10^3/uL (3.6-10.2)
[2024-04-26 14:00] LABS: Calcium 9.2 mg/dL (8.6-10.3); Creatinine, Serum 1.47 mg/dL (0.67-1.17); Potassium 4.6 mmol/L (3.5-5.0); eGFR CKD-EPI 48.5 (>60)
[2024-04-26] MEDS: Bacitracin OINTMENT TUBE TOPICAL SCH (17:46)
[2024-04-26 18:21] LABS: Rapid COVID-19 Molecular Undetected (Undetected)
[2024-04-27 10:36] VITALS: BP 120/73
== END 2024-04-27 13:10 | DRG 669 ==
LOC: EDHOLD 13:16 → ED 13:16 → SUATTDRO 20:39 → MEDTELE 21:45 → SUATTDRO 04-17 10:06
PROVIDERS: ADMIT Student in an Organized Health Care Education/Training Program; ATTEND Internal Medicine